=== PATIENT | female | born 1985 ===

== ENCOUNTER 2023-03-28 09:51 | Outpatient (AMB) | payer OTHER, SELFPAY ==
--- NOTE | 2023-03-28 09:52 | A.OFFPC_ITS ---
Vital Signs 03/28/23 09:56 Height 5 ft 10 in Weight 152 lb 8 oz BMI 21.9 BP 112/70 Blood Pressure Location Rt brachial Position Sitting Pulse 97 Pulse Source Pulse Oximeter Pulse Oximetry (%) 98 Oxygen Delivery Method Room Air Intake Visit Reasons: annual pe Allergies Sulfa (Sulfonamide Antibiotics) Allergy (Unknown, Verified 03/28/23 09:57) nausea Medication List - Last Reconciled 03/28/23 by Irving Han MD albuterol (refill) 90 mcg/actuation mcg inhalation albuterol sulfate 90 mcg/actuation (ProAir HFA) 1 inh inhalation QID PRN 30 days fexofenadine (Wal-Fex Allergy) 180 mg PO DAILY fluticasone propionate (Flonase) intranasal DAILY Tobacco use date assessed: 03/28/23 Dental Screening Dental Screen Date: 03/28/23 Did you have a dental visit in the last 12 months?: No Did you have a dental problem in the last 6 months where you did not have access to dental care?: No Was dental information given to patient?: No HPI annual pe HPI Details Patient is a 37-year-old female came in today for physical examination Having difficulty falling and then staying asleep patient says that pihm-yyk-qyjvvby sleep remedies does work but she does not want to take them too much. We talked about taking Benadryl vagg-abw-axnvazd she does have allergies as well it will help her with sleep as well as allergies. Lab order placed to be done fasting She continued to complain of feeling tired Patient is doing 2 jobs Also complaining of heavy periods that she will discuss further with her OBGYN Complaining of constipation off and on we talked about high fiber diet it is okay to take gdyt-[id number]-[id number] senna tablet as needed as well. Push more fluids. PFSH Family History Brother Substance use disorder Mental health disorder Maternal Aunt Substance use disorder Mental health disorder Mother Substance use disorder Mental health disorder Father Substance use disorder Social History Housing: Apartment Alcohol intake: current Alcohol intake frequency: holidays/special occasions only Patient Tobacco Use Status: Never used Tobacco e-Cigarette/Vaping Use: Never Used Current occupational status: employed Cognitive needs: No Hearing needs: No Vision needs: No Questionnaire Thrive Questionnaire Date Thrive assessed: 12/18/21 AUDIT C Alcohol Use Questionnaire (AUDIT-C) 1. How often do you have a drink containing alcohol?: Never 3. How often do you have six or more drinks on one occasion?: Never Total Score: 0 Score Reviewed/Action Taken: Yes ALEXANDER-7 AMB Questionnaire ALEXANDER-7 Date ALEXANDER - 7 assessed: 12/18/21 Source: Developed by Drs. Eliot Alford, Zunilda Jennings, Vaughn Call and colleagues, with an educational sourav from [employer] Review of Systems Const Denies chills, Denies fever(s) and Denies headache(s) Eyes Denies blurry vision ENT Denies headache(s), Denies nasal discharge, Denies nasal obstruction, Denies odynophagia and Denies sinus pain Card Denies chest pain at rest and Denies chest pain with activity Resp Denies cough and Denies hemoptysis GI Denies diarrhea, Denies odynophagia, Denies vomiting and Denies hematemesis Reports as per HPI Musc Denies abnormal gait Skin/Breast Reports as per HPI Neuro Denies Neuro-related abnormal movements, Denies Abnormal speech present, Denies abnormal gait, Denies headache(s) and Denies Sensory deficit (Neuro) Psych Denies mood swings and Denies paranoia Endo Reports as per HPI Shay/Lymph Reports as per HPI Aller/Immun Reports as per HPI Physical exam (Primary Care) Vital Signs: Last Vital Signs Pulse 97 03/28/23 09:56 BP 112/70 03/28/23 09:56 Pulse Ox 98 03/28/23 09:56 Oxygen Delivery Method Room Air 03/28/23 09:56 BMI result Body Mass Index 21.9 Tobacco/Smoking Status: Tobacco use Status Tobacco use date assessed 03/28/23 03/28/23 09:57 Patient Tobacco Use Status Never used Tobacco 03/28/23 09:57 e-Cigarette/Vaping Use Never Used 03/28/23 09:53 Thrive Assessment: Date of Thrive Assessment Date Thrive assessed 12/18/21 03/28/23 09:53 Const General: cooperative, comfortable and no acute distress Orientation/consciousness: patient oriented x3 HENMT Head: Yes normocephalic and Yes atraumatic Eyes General: appearance normal, both eyes and all related structures Pupils: Equal, round and reactive pupils present EOM: EOMs intact bilaterally Neck Neck: Yes supple and No lymphadenopathy Thyroid: Thyroid normal Lymphatic: no lymphadenopathy noted Resp Effort & Inspection: normal respiratory effort and able to speak in complete sentences Auscultation: clear to auscultation bilaterally Cardio Heart sounds: S1 normal heart sound present and S2 normal heart sound present GI Palpation (GI): Soft to palpation and nontender Auscultation: normal bowel sounds General: Yes no CVA tenderness Back/Spine/Pelvis Back: no CVA tenderness Skin General skin exam: elasticity normal and turgor normal Neuro General: patient oriented x3 and gait normal Cranial nerves: Yes Equal, round and reactive pupils present Speech: No Abnormal speech present Sensory Exam: No Sensory deficit (Neuro) Coordination: tandem gait normal and Romberg test negative Extrem General: Yes normal exam except as noted and No edema Assessment and Plan Assessment & Plan (1) Encounter for general adult medical examination with abnormal findings: Code(s): Z00.01 - Encounter for general adult medical examination with abnormal findings (2) Environmental allergies: Code(s): Z91.09 - Other allergy status, other than to drugs and biological substances (3) Mild asthma: Code(s): J45.909 - Unspecified asthma, uncomplicated (4) Tired: Code(s): R53.83 - Other fatigue (5) Trouble getting to sleep: Code(s): G47.09 - Other insomnia Plan Patient is a 37-year-old female came in today for physical examination Having difficulty falling and then staying asleep patient says that foyr-fip-vikuiqd sleep remedies does work but she does not want to take them too much. We talked about taking Benadryl dwxx-gat-qocxciw she does have allergies as well it will help her with sleep as well as allergies. Lab order placed to be done fasting She continued to complain of feeling tired Patient is doing 2 jobs Also complaining of heavy periods that she will discuss further with her OBGYN Complaining of constipation off and on we talked about high fiber diet it is okay to take ccsj-bdz-tephcnn senna tablet as needed as well. Push more fluids. Patient does have mild asthma which could be secondary to allergy or exercise- induced I have sent a refill on ProAir inhaler to be taken as needed Orders: Orders Comprehensive [place]. Panel Fast Today J45.909 - Unspecified asthma, uncomplicated, Z00.01 - Encounter for general adult medical examination with abnormal findings, Z91.09 - Other allergy status, other than to drugs and biological substances Lipid Panel Today J45.909 - Unspecified asthma, uncomplicated, Z00.01 - Encounter for general adult medical examination with abnormal findings, Z91.09 - Other allergy status, other than to drugs and biological substances Complete Blood Count Auto Diff Today J45.909 - Unspecified asthma, uncomplicated, Z00.01 - Encounter for general adult medical examination with abnormal findings, Z91.09 - Other allergy status, other than to drugs and biological substances TSH reflex Free T4 Today G47.09 - Other insomnia, J45.909 - Unspecified asthma, uncomplicated, R53.83 - Other fatigue, Z00.01 - Encounter for general adult medical examination with abnormal findings, Z91.09 - Other allergy status, other than to drugs and biological substances Vitamin D 25-OH (D2 and D3) Today G47.09 - Other insomnia, J45.909 - Unspecified asthma, uncomplicated, R53.83 - Other fatigue, Z00.01 - Encounter for general ad ult medical examination with abnormal findings, Z91.09 - Other allergy status, other than to drugs and biological substances Medications: Refilled albuterol sulfate 90 mcg/actuation (ProAir HFA) 1 inh inhalation QID PRN 18 grams 5RF shortness of breath or wheezing 30 days Coding Level of Care Code Est Pt Prev Care 18-39y(47870) Diagnoses Encounter for general adult medical examination with abnormal findings Z00.01 Environmental allergies Z91.09 Mild asthma J45.909 Tired R53.83 Trouble getting to sleep G47.09
[2023-03-28 09:56] VITALS: BP 112/70; PULSE 97; O2SAT 98; BMI 21.9
== END 2023-03-28 10:50 | disposition home or self-care (01) ==
PROVIDERS: PCP Internal Medicine; Visit Provider Internal Medicine
DX: Z00.01 Encounter for general adult medical examination with abnormal findings (principal); Z91.09 Other allergy status, other than to drugs and biological substances; J45.909 Unspecified asthma, uncomplicated; R53.83 Other fatigue; G47.09 Other insomnia
CPT/HCPCS: 99395

== ENCOUNTER 2023-03-31 06:47 | Outpatient (REF) | payer OTHER, SELFPAY ==
[2023-03-31 11:59] LABS: MANUAL DIFF FLAG NO
[2023-03-31 12:10] LABS: Basophils Percent Auto 0.6 % (0-2); Eosinophils Absolute Auto 0.6 X10*3/uL (0.0-0.4); Eosinophils Percent Auto 8.5 % (0-4); Hematocrit 41.7 % (37.0-47.0); Hemoglobin 13.6 g/dl (12.0-16.0); Imm Gran Abs Auto 0.02 X10*3/uL (0.00-0.03); Imm Gran Pct Auto 0.3 % (0.0-0.4); Lymphocytes Absolute Auto 2.7 X10*3/uL (1.2-4.9); Lymphocytes Percent Auto 41.2 % (20-40); Mean Corpuscular HGB Conc 32.6 g/dl (31.0-35.0); Mean Corpuscular Hemoglobin 30.6 pg (27.0-33.0); Mean Corpuscular Volume 93.9 fL (80.0-98.0); Mean Platelet Volume 10.3 fL (9.4-12.3); Monocytes Absolute Auto 0.7 X10*3/uL (0.1-1.2); Monocytes Percent Auto 10.1 % (2-11); Neutrophils Absolute Auto 2.5 x10*3/uL (2.0-8.3); Neutrophils Percent Auto 39.3 % (45-73); Platelet Count 278 X10*3/uL (160-400); Red Blood Count 4.44 X10*6/uL (4.20-5.50); Red Cell Distribution Width 11.9 % (11.0-16.0); White Blood Count 6.5 X10*3/uL (4.8-10.8)
[2023-03-31 12:55] LABS: Alanine Aminotransferase 12 U/L (0-31); Albumin Level 4.1 g/dL (3.5-5.0); Alkaline Phosphatase 67 U/L (39-117); Anion Gap 11 (12-20); Aspartate Amino Transferase 17 U/L (5-31); Bilirubin Total 0.7 mg/dL (0.0-1.0); Blood Urea Nitrogen 8 mg/dL (9-16); Calcium 9.5 mg/dL (8.4-10.2); Carbon Dioxide 27 mmol/L (22-29); Chloride 105 mmol/L (96-108); Cholesterol 130 mg/dL; Estimated Glomerular Filt Rate > 60; Glucose Fasting 83 mg/dL (60-99); HDL Cholesterol 50 mg/dL; LDL Cholesterol Calculated 63 mg/dl; Sodium 139 mmol/L (135-145); Total Protein 7.1 g/dL (6.5-8.0); Triglycerides 89 mg/dL
[2023-03-31 12:56] LABS: TSH reflex Free T4 0.88 uIU/mL (0.32-4.0)
[2023-04-04 14:54] LABS: Vitamin D 25-OH, D2 <4 ng/mL; Vitamin D 25-OH, D3 29 ng/mL; Vitamin D 25-OH, Total 29 ng/mL (30-100)
== END 2023-03-31 06:48 | disposition home or self-care (01) ==
LOC: HO.HMGCLDS 06:47
PROVIDERS: PCP Internal Medicine; Visit Provider Internal Medicine
DX: Z00.01 Encounter for general adult medical examination with abnormal findings (principal); J45.909 Unspecified asthma, uncomplicated; G47.09 Other insomnia; R53.83 Other fatigue; Z91.09 Other allergy status, other than to drugs and biological substances
CPT/HCPCS: 36415; 80053; 80061; 82306; 84443; 85025

== ENCOUNTER 2023-07-28 10:23 | Outpatient (AMB) | payer OTHER, SELFPAY ==
--- NOTE | 2023-07-28 11:12 | MHC.OFFWIV ---
Intake Vital Signs 07/28/23 11:13 Height 5 ft 10 in Weight 70.307 kg BMI 22.2 BP 110/68 Blood Pressure Location Rt brachial Position Sitting Pulse 80 Pulse Source Pulse Oximeter Temp 97.8 F Temp Source Temporal Artery Scan Pulse Oximetry (%) 97 Oxygen Delivery Method Room Air Intake Visit Reasons: EP, Swallowed a piece of plastic fork Intake Note: pt is here for c/o sore throat due to swallowing pastic fork Patient Tobacco Use Status: Never used Tobacco Allergies Sulfa (Sulfonamide Antibiotics) Allergy (Unknown, Verified 07/28/23 11:14) nausea Do you need a note to return to daycare/school/sports/work: Yes HPI HPI Comments History of Present Illness Details 37-year-old female presents foreign body sensation in throat since last night, patient reports she was eating, 1 of the pointy parts of the plastic fork broke off and she swallowed it she thinks it scratched her throat and since then has been having a discomfort in her throat. Patient has been able to eat and drink since then, we gave her a cup of water in the room and she was able to drink it without difficulty. No chest pain or shortness of breath. Tolerating secretions well, no changes in voice, fevers, chills, difficulty breathing, nausea, vomiting, abdominal pain. This was not intentional Physical exam benign This is likely an abrasion to that throat status post swallowing a pointy object. Unlikely perforation, threat to airway, pneumothorax. Patient able to tolerate p.o. no need for emergent endoscopy or visit to the emergency department. Will obtain imaging and advised her to speak to PCP about GI referral if needed. Educated patient on diagnosis and treatment plan, answered all question, patient verbalizes understanding. At this time patient will be discharged home, advised to return with new or worsening symptoms. Educated on worrisome signs and symptoms and when to return. At this time I feel comfortable discharge home. PFSH Family History Brother Substance use disorder Mental health disorder Maternal Aunt Substance use disorder Mental health disorder Mother Substance use disorder Mental health disorder Father Substance use disorder Social History Housing: Apartment Alcohol intake: current Alcohol intake frequency: holidays/special occasions only Patient Tobacco Use Status: Never used Tobacco e-Cigarette/Vaping Use: Never Used Current occupational status: employed Cognitive needs: No Hearing needs: No Vision needs: No Review of Systems Const Details: Constitutional : No Weight loss, No Fever, No Chills, No Fatigue, No Malaise ENT/Mouth : No sore throat, No Rhinorrhea, + FB sensation in throat Eyes: No Eye Pain, No Swelling, No Redness Cardiovascular : No Chest Pain, No SOB, No Dyspnea on Exertion, No Orthopnea, No Edema, No Palpitations Respiratory : No Cough, No Sputum, No Wheezing Gastrointestinal : No Nausea, No Vomiting, No Diarrhea, No Constipation, No abdominal Pain, No Hematochezia, No Melena Genitourinary : No Dysuria, No Urinary Frequency, No Hematuria, Musculoskeletal : No joint pain, No Myalgias, No Joint Swelling Skin : No Skin Lesions, No rash Neuro : No Weakness, No Numbness, No Dizziness, No Headache Psych : No Anxiety/Panic, No Depression All other systems reviewed and are negative All systems reviewed & are unremarkable except as noted in HPI and below Physical Exam Vital Signs: Last Vital Signs Temp 97.8 F 07/28/23 11:13 Pulse 80 07/28/23 11:13 BP 110/68 07/28/23 11:13 Pulse Ox 97 07/28/23 11:13 Oxygen Delivery Method Room Air 07/28/23 11:13 BMI result Body Mass Index 22.2 Vital signs stable Appearance: Alert.? Oriented X3.? No acute distress.? Speaking full sentences controlling secretions well. Head: Normocephalic, atraumatic, no step-offs or deformities Eyes: Pupils equal, round and reactive to light.? ENT: Pharynx normal.? Neck: Normal inspection.? Neck supple.? CVS: Normal heart rate and rhythm.? Pulses normal.? Respiratory: No respiratory distress.? Breath sounds normal.? Abdomen: Soft and nontender.? Skin: Skin warm and dry.? Normal skin color.? Normal skin turgor.? Extremities: No lower extremity edema.? No calf ttp. 5/5 strength to bilateral upper and lower extremities Neuro: Oriented X 3.? No motor deficit.? No sensory deficit. CN 2-12 intact Assessment & Plan Assessment & Plan (1) Foreign body sensation in throat: Code(s): R09.A2 - Foreign body sensation, throat Plan Take your medications as prescribed. If you were prescribed antibiotics today, it is important that you take your medication to their entirety, do not skip any doses, do not finish them early. Follow-up with your primary care provider this week. Return to the emergency department with new or worsening symptoms. Such as fevers, chills, chest pain, shortness of breath, nausea, vomiting, dizziness, headache, vision changes, lethargy In case of emergency call 911 Follow-up with GI as needed Orders: Orders XR KUB Today R09.A2 - Foreign body sensation, throat XR soft tissue neck Today R09.A2 - Foreign body sensation, throat Coding Level of Care Code Est Pt Level 3 (90470) Diagnoses Foreign body sensation in throat R09.A2
[2023-07-28 11:13] VITALS: BP 110/68; PULSE 80; TEMP 36.6; O2SAT 97; BMI 22.2
== END 2023-07-28 11:48 | disposition home or self-care (01) ==
PROVIDERS: PCP Internal Medicine; Visit Provider Physician Assistant
DX: R09.A2 Foreign body sensation, throat (principal)
CPT/HCPCS: 99213

== ENCOUNTER 2023-07-28 11:17 | Outpatient (REF) | payer OTHER, SELFPAY ==
--- NOTE | ~2023-07-28 | XR_ITS ---
EXAMINATION: XR SOFT TISSUE NECK CLINICAL INDICATION: Foreign body sensation. COMPARISON: None available. TECHNIQUE: 2 views of the soft tissue neck were obtained. FINDINGS: Soft tissue films of the neck demonstrate a normal larynx, pharynx and upper trachea. No significant soft tissue swelling or radiopaque foreign body is demonstrated. XR/XR soft tissue neck IMPRESSION: Unremarkable examination.
--- NOTE | ~2023-07-28 | XR_ITS ---
EXAMINATION: XR ABDOMEN KUB CLINICAL INDICATION: Foreign body sensation. COMPARISON: None available. TECHNIQUE: 2 views of the abdomen. FINDINGS: Imaged lung bases are clear. The bowel gas pattern is nonobstructive. No unusual soft tissue calcifications are noted. Regional osseous structures are intact. XR/XR KUB IMPRESSION: Unremarkable examination.
== END 2023-07-28 11:18 | disposition home or self-care (01) ==
LOC: HO.HMGCX 11:17
PROVIDERS: PCP Internal Medicine; Visit Provider Physician Assistant
DX: R09.A2 Foreign body sensation, throat (principal)
CPT/HCPCS: 70360; 74018

== ENCOUNTER 2023-09-19 09:50 | Outpatient (AMB) | payer OTHER, SELFPAY ==
[2023-09-19 09:55] VITALS: BP 112/78; PULSE 90; TEMP 36.9; O2SAT 98; BMI 21.4
--- NOTE | 2023-09-19 09:55 | AM.OFFWIN_ITS ---
Intake Vital Signs 09/19/23 09:55 Height 5 ft 10 in Weight 149 lb BMI 21.4 BP 112/78 Blood Pressure Location Lt brachial Position Sitting Pulse 90 Pulse Source Pulse Oximeter Temp 98.5 F Temp Source Temporal Artery Scan Pulse Oximetry (%) 98 Oxygen Delivery Method Room Air Intake Visit Reasons: EST/sore throat/ ear pain(lobby) Intake Note: pt is here today for sore throat and ear pain started Friday Patient Tobacco Use Status: Never used Tobacco Allergies Sulfa (Sulfonamide Antibiotics) Allergy (Unknown, Verified 09/19/23 09:56) nausea Medication List - Last Reconciled 09/19/23 by Mayda Young NP albuterol sulfate 90 mcg/actuation (ProAir HFA) 1 inh inhalation QID PRN 30 days fexofenadine (Wal-Fex Allergy) 180 mg PO DAILY fluticasone propionate (Flonase) intranasal DAILY Do you need a note to return to daycare/school/sports/work: Yes HPI HPI Comments History of Present Illness Details 37 y/o female patient presents [facility] with c/o sore-throat and ear pain since Friday. Denies fevers, chills, nausea or vomiting. PFSH Family History Brother Substance use disorder Mental health disorder Maternal Aunt Substance use disorder Mental health disorder Mother Substance use disorder Mental health disorder Father Substance use disorder Social History Housing: Apartment Alcohol intake: current Alcohol intake frequency: holidays/special occasions only Patient Tobacco Use Status: Never used Tobacco e-Cigarette/Vaping Use: Never Used Current occupational status: employed Cognitive needs: No Hearing needs: No Vision needs: No Review of Systems Const All systems reviewed & are unremarkable except as noted in HPI and below Physical Exam Vital Signs: Last Vital Signs Temp 98.5 F 09/19/23 09:55 Pulse 90 09/19/23 09:55 BP 112/78 09/19/23 09:55 Pulse Ox 98 09/19/23 09:55 Oxygen Delivery Method Room Air 09/19/23 09:55 BMI result Body Mass Index 21.4 Const General: comfortable and no acute distress HEENT Head: Yes normocephalic Ears: external ears normal and TM's normal bilaterally General nose exam: Abnormal mucous membranes and turbinates present boggy and erythematous and Nasal discharge present Face and sinus: Yes sinuses nontender Mouth: moist mucous membranes and Abnormal oral and palatal mucosa present erythematous Throat: Yes postnasal drainage Resp Effort & Inspection: normal respiratory effort Auscultation: clear to auscultation bilaterally Cardio Rate: regular rate Rhythm: regular rhythm Results AMB Rapid Strep AMB Rapid Strep Negative Last Edit by Marcelino Ovalle CMA on 09/19/23 10 :59 Results Reviewed Results Reviewed: Laboratory Last Values Strep Scn [facility] Negative 09/19/23 10:58 Assessment & Plan Assessment & Plan (1) Acute pharyngitis: Code(s): J02.9 - Acute pharyngitis, unspecified Qualifiers: Pharyngitis/tonsillitis etiology: other specified organisms Qualified Code(s): J02.8 - Acute pharyngitis due to other specified organisms Plan: - Rest, warm fluids - Throat culture for Strep - SARs. - OTC cold remedies Orders: Orders AMB Rapid Strep Screen Today Z13.9 - Encounter for screening, unspecified SARS-CoV2/FLU/RSV Today J02.8 - Acute pharyngitis due to other specified organisms Throat Culture Today J02.8 - Acute pharyngitis due to other specified organisms Medications: New amoxicillin 500 mg PO BID 5 days 10 caps 0RF J02.8 - Acute pharyngitis due to other specified organisms Coding Level of Care Code Est Pt Level 3 (13939) Diagnoses Acute pharyngitis due to other specified organisms J02.8 Pharyngitis/tonsillitis etiology: other specified organisms Time Spent (min) 15
== END 2023-09-19 10:31 | disposition home or self-care (01) ==
PROVIDERS: PCP Internal Medicine; Visit Provider Nurse Practitioner Family
DX: J02.9 Acute pharyngitis, unspecified (principal)
CPT/HCPCS: 87880; 99213

== ENCOUNTER 2023-09-19 15:19 | Outpatient (REF) | payer OTHER, SELFPAY ==
[2023-09-19 16:28] LABS: Influenza A PCR NEGATIVE (Negative); Influenza B PCR NEGATIVE (Negative); Resp Syncy Virus RNA Qual PCR NEGATIVE (Negative); SARS COV2 PCR INHOUSE NEGATIVE (Negative)
== END 2023-09-19 15:20 | disposition home or self-care (01) ==
LOC: HO.LNP 15:19
PROVIDERS: Visit Provider Nurse Practitioner Family
DX: Z11.52 Encounter for screening for COVID-19 (principal); Z20.822 Contact with and (suspected) exposure to COVID-19; J02.8 Acute pharyngitis due to other specified organisms
CPT/HCPCS: 0241U; 87070

== ENCOUNTER 2023-10-23 08:00 | Outpatient (AMB) | payer OTHER, SELFPAY ==
[2023-10-23 08:15] VITALS: BP 118/72; PULSE 74; TEMP 36.6; O2SAT 98; BMI 21.5
--- NOTE | 2023-10-23 08:15 | AM.OFFWIN_ITS ---
Intake Vital Signs 10/23/23 08:15 Height 5 ft 10 in Weight 150 lb BMI 21.5 BP 118/72 Blood Pressure Location Lt brachial Position Sitting Pulse 74 Pulse Source Pulse Oximeter Temp 97.9 F Temp Source Oral Pulse Oximetry (%) 98 Oxygen Delivery Method Room Air Intake Visit Reasons: EST/trouble swallowing (lobby masked) Intake Note: pt is here for difficulty swallowing Patient Tobacco Use Status: Never used Tobacco Allergies Sulfa (Sulfonamide Antibiotics) Allergy (Unknown, Verified 10/23/23 08:16) nausea Do you need a note to return to daycare/school/sports/work: Yes HPI HPI Comments History of Present Illness Details 38 y/o female patient who [facility] clinic with c/o difficulty swallowing. Pt reports pain and discomfort every time she drinks fluids or comnusme solids. Pt reports feeling like something is stuck inside her throat preventing her from swallowing. Denies SOB or chest pains. Denies any other symptoms. Pt was seen back 2/4 by vt - Throat culture, SARs were all negative. She has not had mouth cleaning for many years. [facility] Family History Brother Substance use disorder Mental health disorder Maternal Aunt Substance use disorder Mental health disorder Mother Substance use disorder Mental health disorder Father Substance use disorder Social History Housing: Apartment Alcohol intake: current Alcohol intake frequency: holidays/special occasions only Patient Tobacco Use Status: Never used Tobacco e-Cigarette/Vaping Use: Never Used Current occupational status: employed Cognitive needs: No Hearing needs: No Vision needs: No Review of Systems Const All systems reviewed & are unremarkable except as noted in HPI and below Physical Exam Vital Signs: Last Vital Signs Temp 97.9 F 10/23/23 08:15 Pulse 74 10/23/23 08:15 BP 118/72 10/23/23 08:15 Pulse Ox 98 10/23/23 08:15 Oxygen Delivery Method Room Air 10/23/23 08:15 BMI result Body Mass Index 21.5 HEENT Mouth: tongue normal, Normal salivary glands and ducts present, oropharynx normal and moist mucous membranes Neck Neck: Yes full ROM, Yes no lymphadenopathy, Yes trachea midline and Yes supple Thyroid: Thyroid normal, not firm, no masses, no nodules and nontender Assessment & Plan Assessment & Plan (1) Trouble swallowing: Code(s): R13.10 - Dysphagia, unspecified Qualifiers: Dysphagia type: unspecified Qualified Code(s): R13.10 - Dysphagia, unspecified Plan: DDx's: Tonsil stones vs GERD vs Neck/thyroid nodules/mass - TSH levels to r/o thyroid disease - F/U with PCP for Neck U/S if symptoms not better - F/U Dentist for Routine Teeth cleaning - Improve Oral Hygiene Orders: Orders TSH reflex Free T4 Today R13.10 - Dysphagia, unspecified Coding Level of Care Code Est Pt Level 3 (43469) Diagnoses Dysphagia, unspecified type R13.10 Dysphagia type: unspecified Time Spent (min) 15
== END 2023-10-23 08:56 | disposition home or self-care (01) ==
PROVIDERS: PCP Internal Medicine; Visit Provider Nurse Practitioner Family
DX: R13.10 Dysphagia, unspecified (principal)
CPT/HCPCS: 99213

== ENCOUNTER 2023-10-23 08:38 | Outpatient (REF) | payer OTHER, SELFPAY ==
[2023-10-23 12:32] LABS: TSH reflex Free T4 0.83 uIU/mL (0.32-4.0)
== END 2023-10-23 08:39 | disposition home or self-care (01) ==
LOC: HO.HMGCLDS 08:38
PROVIDERS: PCP Internal Medicine; Visit Provider Nurse Practitioner Family
DX: R13.10 Dysphagia, unspecified (principal)
CPT/HCPCS: 36415; 84443

== ENCOUNTER 2023-11-26 08:34 | Outpatient (AMB) | payer OTHER, SELFPAY ==
[2023-11-26 08:41] VITALS: BP 120/68; PULSE 96; O2SAT 99; BMI 22.0
--- NOTE | 2023-11-26 08:41 | A.OFFPC_ITS ---
Vital Signs 11/26/23 08:41 Height 5 ft 10 in Weight 153 lb 8 oz BMI 22.0 BP 120/68 Blood Pressure Location Lt brachial Position Sitting Pulse 96 Pulse Source Pulse Oximeter Pulse Oximetry (%) 99 Oxygen Delivery Method Room Air Intake Visit Reasons: ENT Referral-Difficulties Swallowing Allergies Sulfa (Sulfonamide Antibiotics) Allergy (Unknown, Verified 11/26/23 08:44) nausea Medication List - Last Reconciled 11/26/23 by Irving Han MD albuterol sulfate 90 mcg/actuation (ProAir HFA) 1 inh inhalation QID PRN 30 days Tobacco use date assessed: 11/26/23 Dental Screening Dental Screen Date: 11/26/23 Did you have a dental visit in the last 12 months?: No Did you have a dental problem in the last 6 months where you did not have access to dental care?: No Was dental information given to patient?: Patient has dentist HPI ENT Referral-Difficulties Swallowing HPI Details Patient is a 38-year-old female Patient says that in July she accidentally swallowed a bronch of plastic fork Then in August she had viral illness Since then she is having difficulty with speaking and hoarseness of voice off and on Patient is a Griffith and is unable to seeing since. She would like to have a referral to ENT specialist as well as speech therapist She also like to have a referral to OBGYN since she has not seen 1 in a while On examination today her ENT exam is within normal limit She also is complaining of irritant cough off and on I would recommend that while she is waiting for ENT evaluation She should start [id number] Prilosec to see if it helps her with irritant cough and the sore throat she is experiencing off and on. Also would like to recommend to stop eating 4 hours before bedtime and avoid acidic foods. She does have mild asthma that she has not treating. She should start using the rescue inhaler and see if her symptoms improve PFSH Family History Brother Substance use disorder Mental health disorder Maternal Aunt Substance use disorder Mental health disorder Mother Substance use disorder Mental health disorder Father Substance use disorder Social History Housing: Apartment Alcohol intake: current Alcohol intake frequency: holidays/special occasions only Patient Tobacco Use Status: Never used Tobacco e-Cigarette/Vaping Use: Never Used Current occupational status: employed Cognitive needs: No Hearing needs: No Vision needs: No Questionnaire PHQ-9 Over the last 2 weeks, how often have you been bothered by any of the following problems? 1. Little interest or pleasure in doing things: not at all 2. Feeling down, depressed, or hopeless: not at all 3. Trouble falling or staying asleep, or sleeping too much: not at all 4. Feeling tired or having little energy: not at all 5. Poor appetite or overeating: not at all 6. Feeling bad about yourself - or that you are a failure or have let yourself or your family down: not at all 7. Trouble concentrating on things, such as reading the newspaper or watching television: not at all 8. Moving or speaking so slowly that other people could have noticed. Or the opposite - being so fidgety or restless that you have been moving around a lot more than usual: not at all 9. Thoughts that you would be better off or of hurting yourself in some way: not at all Total score: 0 Depression Screening Interpretation: Negative Depression Screening Done: Yes 89250 - PHQ-9 Billing: Yes Source: Developed by Drs. Eliot Alford, Zunilda Jennings, Vaughn Call and colleagues, with an educational sourav from [employer]. Thrive Questionnaire Date Thrive assessed: 11/26/23 I am a: Patient What is your living situation today?: I have a steady place to live Within the past 12 months, did the food you bought not last and you didn't have the money to get more?: Never true Within the past 12 months, did you worry whether your food would run out before you got money to buy more?: Never true Do you have trouble paying for medicines?: No Do you have trouble getting transportation to medical appointments?: No Do you have trouble paying your heating and electricity bill?: No Do you have trouble taking care of your child, family member or friend?: No Do you have trouble with day-to-day activities such as bathing, preparing meals, shopping, managing finances, etc.?: No Are you currently unemployed and looking for a job?: No Are you interested in more education?: No Please select the resources that you would like help with: None Currently or been in a relationship where the following occur: no concerns reported THRIVE Score: 0 AUDIT C Alcohol Use Questionnaire (AUDIT-C) 1. How often do you have a drink containing alcohol?: Never 3. How often do you have six or more drinks on one occasion?: Never Total Score: 0 Score Reviewed/Action Taken: Yes ALEXANDER-7 AMB Questionnaire ALEXANDER-7 Date ALEXANDER - 7 assessed: 11/26/23 Feeling nervous, anxious, or on edge: 0 = Not at all Not being able to stop or control worryin = Not at all Worrying too much about different things: 0 = Not at all Trouble relaxin = Not at all Being so restless that it is hard to sit still: 0 = Not at all Becoming easily annoyed or irritable: 0 = Not at all Feeling afraid as if something awful might happen: 0 = Not at all Total ALEXANDER-7 score (0-4 normal; 5-9 mild; 10-14 moderate; 15-21 severe): 0 Source: Developed by Drs. Eliot Alford, Zunilda Jennings, Vaughn Call and colleagues, with an educational sourav from [employer]. ALEXANDER-7 Assessment Billing ALEXANDER-7 Assessment Tool: ALEXANDER-7 Assessment 34200 Review of Systems Const Denies chills and Denies fever(s) ENT Denies epistaxis and Denies nasal discharge Card Denies chest pain Resp Denies chest congestion and Denies hemoptysis GI Denies diarrhea and Denies nausea Skin/Breast Denies rash Neuro Reports no additional complaints Psych Reports no additional complaints Endo Reports no additional complaints Physical exam (Primary Care) Vital Signs: Last Vital Signs Pulse 96 11/26/23 08:41 BP 120/68 11/26/23 08:41 Pulse Ox 99 11/26/23 08:41 Oxygen Delivery Method Room Air 11/26/23 08:41 BMI result Body Mass Index 22.0 Tobacco/Smoking Status: Tobacco use Status Tobacco use date assessed 11/26/23 11/26/23 08:49 Patient Tobacco Use Status Never used Tobacco 11/26/23 08:49 e-Cigarette/Vaping Use Never Used 11/26/23 08:49 PHQ-9: PHQ-9 Score PHQ-9: Total score 0 11/26/23 09:15 Depression Screening Interpretation: Negative Thrive Assessment: Date of Thrive Assessment Date Thrive assessed 11/26/23 11/26/23 09:15 Currently or been in a relationship where the following occur: no concerns reported Const General: cooperative, comfortable and no acute distress Orientation/consciousness: patient oriented x3 HENMT Other: ENT exam is within normal limit Head: Yes normocephalic Eyes General: appearance normal, both eyes and all related structures Neck Neck: Yes supple Resp Effort & Inspection: normal respiratory effort, no cough and no stridor Cardio Rhythm: regular rhythm Heart sounds: S1 normal heart sound present and S2 normal heart sound present Skin General skin exam: turgor normal Neuro General: patient oriented x3, tone normal and moves all extremities Extrem Right lower extremity: no edema Left lower extremity: no edema Assessment and Plan Assessment & Plan (1) Hoarseness of voice: Code(s): R49.0 - Dysphonia (2) Difficulty speaking: Code(s): R47.9 - Unspecified speech disturbances (3) Dry cough: Code(s): R05.8 - Other specified cough (4) Asthma, intermittent: Code(s): J45.20 - Mild intermittent asthma, uncomplicated Qualifiers: Asthma severity: mild Asthma complication type: uncomplicated Qualified Code(s): J45.20 - Mild intermittent asthma, uncomplicated Plan Patient is a 38-year-old female Patient says that in July she accidentally swallowed a bronch of plastic fork Then in August she had viral illness Since then she is having difficulty with speaking and hoarseness of voice off and on Patient is a [place] and is unable to seeing since. She would like to have a referral to ENT specialist as well as speech therapist She also like to have a referral to OBGYN since she has not seen 1 in a while On examination today her ENT exam is within normal limit She also is complaining of irritant cough off and on I would recommend that while she is waiting for ENT evaluation She should start [id number] Prilosec to see if it helps her with irritant cough and the sore throat she is experiencing off and on. Also would like to recommend to stop eating 4 hours before bedtime and avoid acidic foods. She does have mild asthma that she has not treating. 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
== END 2023-11-26 10:33 | disposition home or self-care (01) ==
PROVIDERS: PCP Internal Medicine; Visit Provider Internal Medicine
DX: R49.0 Dysphonia (principal); R47.9 Unspecified speech disturbances; R05.8 Other specified cough; J45.20 Mild intermittent asthma, uncomplicated
CPT/HCPCS: 99214

== ENCOUNTER 2023-12-16 22:16 | Emergency (ER) | payer OTHER, SELFPAY ==
[2023-12-16 22:52] VITALS: BP 121/62; PULSE 90; RESP 4; TEMP 36.6; O2SAT 98; BMI 22.2
--- NOTE | 2023-12-16 23:01 | ECG_ITS ---
Test Reason : OVERDOSE Blood Pressure : / mmHG Vent. Rate : 078 BPM Atrial Rate : 078 BPM P-R Int : 154 ms QRS Dur : 080 ms QT Int : 360 ms P-R-T Axes : 073 061 032 degrees QTc Int : 410 ms Normal sinus rhythm with sinus arrhythmia Normal ECG No previous ECGs available Referred By: Generic ED Physician Electronically Signed By:SUZANNE VILLAVICENCIO
[2023-12-16 23:47] LABS: Basophils Percent Auto 0.4 % (0-2); Eosinophils Absolute Auto 0.1 X10*3/uL (0.0-0.4); Hematocrit 39.2 % (37.0-47.0); Hemoglobin 13.3 g/dl (12.0-16.0); Imm Gran Abs Auto 0.02 X10*3/uL (0.00-0.03); Imm Gran Pct Auto 0.3 % (0.0-0.4); Lymphocytes Absolute Auto 2.1 X10*3/uL (1.2-4.9); Lymphocytes Percent Auto 30.5 % (20-40); MANUAL DIFF FLAG NO; Mean Corpuscular HGB Conc 33.9 g/dl (31.0-35.0); Mean Corpuscular Hemoglobin 31.1 pg (27.0-33.0); Mean Corpuscular Volume 91.6 fL (80.0-98.0); Monocytes Absolute Auto 0.6 X10*3/uL (0.1-1.2); Monocytes Percent Auto 9.3 % (2-11); Neutrophils Absolute Auto 3.9 x10*3/uL (2.0-8.3); Neutrophils Percent Auto 58.5 % (45-73); Platelet Count 266 X10*3/uL (160-400); Red Blood Count 4.28 X10*6/uL (4.20-5.50); Red Cell Distribution Width 12.4 % (11.0-16.0); White Blood Count 6.8 X10*3/uL (4.8-10.8)
[2023-12-17 00:02] LABS: Alanine Aminotransferase 16 U/L (0-31); Albumin Level 4.2 g/dL (3.5-5.0); Alkaline Phosphatase 60 U/L (39-117); Anion Gap 13 (12-20); Aspartate Amino Transferase 16 U/L (5-31); Bilirubin Total 0.3 mg/dL (0.0-1.0); Blood Urea Nitrogen 13 mg/dL (9-16); Calcium 9.3 mg/dL (8.4-10.2); Carbon Dioxide 23 mmol/L (22-29); Chloride 107 mmol/L (96-108); Creatinine Clr Calc Pharmacy 106.4; Estimated Glomerular Filt Rate > 60; Glucose Random 109 mg/dL (60-115); Potassium 3.6 mmol/L (3.3-5.1); Sodium 139 mmol/L (135-145); Total Protein 7.2 g/dL (6.5-8.0)
[2023-12-17 00:16] LABS: Troponin-I High Sensitivity < 2.7 ng/L (<3.5-17.0)
[2023-12-17 03:00] VITALS: BP 119/70; PULSE 77; RESP 18; TEMP 36.8; O2SAT 99
== END 2023-12-17 03:23 | disposition left against medical advice (07) ==
PROVIDERS: Emergency Provider Emergency Medicine; PCP Internal Medicine
DX: R10.9 Unspecified abdominal pain (principal)
CPT/HCPCS: 36415; 80053; 84484; 85025; 93005; 99283

== ENCOUNTER → 2023-12-16 23:01 | Outpatient (BNV) | payer OTHER, SELFPAY | PROVIDERS: Emergency Provider Emergency Medicine; PCP Internal Medicine; Visit Provider Internal Medicine | DX: I49.8 Other specified cardiac arrhythmias (principal) | CPT/HCPCS: 93010 ==

== ENCOUNTER 2024-01-09 08:51 | Outpatient (AMB) | payer OTHER, SELFPAY ==
--- NOTE | 2024-01-09 08:53 | MHC.PC.OV ---
Vital Signs 01/09/24 08:55 Height 5 ft 10 in Weight 155 lb BMI 22.2 BP 120/80 Blood Pressure Location Rt brachial Position Sitting Pulse 67 Pulse Source Pulse Oximeter Pulse Oximetry (%) 98 Oxygen Delivery Method Room Air Intake Visit Reasons: Stomach problem, throat problem Allergies Sulfa (Sulfonamide Antibiotics) Allergy (Unknown, Verified 01/09/24 08:55) nausea Medication List - Last Reconciled 01/09/24 by Irving Han MD albuterol sulfate 90 mcg/actuation (ProAir HFA) 1 inh inhalation QID PRN 30 days omeprazole 20 mg PO DAILY Tobacco use date assessed: 11/26/23 Dental Screening Dental Screen Date: 11/26/23 HPI Stomach problem, throat problem HPI Details Patient is a 38-year-old female came in today to talk about her medical issues Patient is still having sensation of foreign body in her throat Omeprazole that was started by me once a day has helped her I have told her to increase the dose to b.i.d. Patient is already following dietary instructions Four weeks ago patient accidentally swallowed pain thinner instead of water She said that it was ordered less so she did not realize She was evaluated in emergency room Patient says that the ENT appointment is in until May and she does not want to wait that long She would like to go to [place], she will find a doctor for herself and will get back to me if she needs any paperwork sent over I have also placed referral for her to be evaluated for Gastroenterology Since patient has benefitted from PPI, she might need EGD for ongoing symptoms She tells me that her grandmother and her mother both had stomach issues Grandmother also had stomach cancer. Patient want a referral to OBGYN at [facility] which I have placed for her [facility], [facility] Family History Brother Substance use disorder Mental health disorder Maternal Aunt Substance use disorder Mental health disorder Mother Substance use disorder Mental health disorder Father Substance use disorder Social History Housing: Apartment Alcohol intake: current Alcohol intake frequency: holidays/special occasions only Patient Tobacco Use Status: Never used Tobacco e-Cigarette/Vaping Use: Never Used Current occupational status: employed Cognitive needs: No Hearing needs: No Vision needs: No Questionnaire Thrive Questionnaire Date Thrive assessed: 11/26/23 ALEXANDER-7 AMB Questionnaire ALEXANDER-7 Date ALEXANDER - 7 assessed: 11/26/23 Source: Developed by Drs. Eliot Alford, Zunilda Jennings, Vaughn Call and colleagues, with an educational sourav from [employer]. Review of Systems Const Denies chills and Denies fever(s) ENT Denies epistaxis and Denies nasal discharge Card Denies chest pain Resp Denies chest congestion and Denies hemoptysis GI Denies diarrhea and Denies nausea Skin/Breast Denies rash Neuro Reports no additional complaints Psych Reports no additional complaints Endo Reports no additional complaints Physical exam (Primary Care) Vital Signs: Last Vital Signs Pulse 67 01/09/24 08:55 BP 120/80 01/09/24 08:55 Pulse Ox 98 01/09/24 08:55 Oxygen Delivery Method Room Air 01/09/24 08:55 BMI result Body Mass Index 22.2 Tobacco/Smoking Status: Tobacco use Status Tobacco use date assessed 11/26/23 01/09/24 08:55 Patient Tobacco Use Status Never used Tobacco 01/09/24 08:55 e-Cigarette/Vaping Use Never Used 01/09/24 08:55 Thrive Assessment: Date of Thrive Assessment Date Thrive assessed 11/26/23 01/09/24 08:55 Const General: cooperative, comfortable and no acute distress Orientation/consciousness: patient oriented x3 HENMT Other: Throat exam normal Head: Yes normocephalic Eyes General: appearance normal, both eyes and all related structures Neck Neck: Yes supple Resp Effort & Inspection: normal respiratory effort, no cough and no stridor Cardio Rhythm: regular rhythm Heart sounds: S1 normal heart sound present and S2 normal heart sound present GI Other: Mild epigastric discomfort with pressure, bowel sounds positive Skin General skin exam: turgor normal Neuro General: patient oriented x3, tone normal and moves all extremities Extrem Right lower extremity: no edema Left lower extremity: no edema Assessment and Plan Assessment & Plan (1) Hoarseness of voice: Code(s): R49.0 - Dysphonia (2) Acid reflux: Code(s): K21.9 - Gastro-esophageal reflux disease without esophagitis Qualifiers: Esophagitis presence: without esophagitis Qualified Code(s): K21.9 - Gastro-esophageal reflux disease without esophagitis (3) Throat irritation: Code(s): J39.2 - Other diseases of pharynx (4) Accidental ingestion of substance: Code(s): T65.91XA - Toxic effect of unspecified substance, accidental (unintentional), initial encounter Qualifiers: Encounter type: sequela Qualified Code(s): T65.91XS - Toxic effect of unspecified substance, accidental (unintentional), sequela Plan Patient is a 38-year-old female came in today to talk about her medical issues Patient is still having sensation of foreign body in her throat Omeprazole that was started by me once a day has helped her I have told her to increase the dose to b.i.d. Patient is already following dietary instructions Four weeks ago patient accidentally swallowed pain thinner instead of water She said that it was ordered less so she did not realize She was evaluated in emergency room She still have slight bowel issues but it is getting better Patient says that the ENT appointment is in until May and she does not want to wait that long She would like to go to [place], she will find a doctor for herself and will get back to me if she needs any paperwork sent over I have also placed referral for her to be evaluated for Gastroenterology Since patient has benefitted from PPI, she might need EGD for ongoing symptoms She tells me that her grandmother and her mother both had stomach issues Grandmother also had stomach cancer. She is concerned about H pylori, which can be tested with EGD Patient want a referral to OBGYN at [facility] which I have placed for her 50 minutes spent in care of this patient including [id number], placing referrals, charting, reviewing charts Coordination of care Orders: Referrals Gastroenterology Referral K21.9 - Gastro-esophageal reflux disease without esophagitis, R49.0 - Dysphonia IT CONSULTING DIRECTOR Referral Z01.419 - Encounter for gynecological examination (general) (routine) without abnormal findings Medications: New omeprazole 20 mg PO BID 90 days 180 tabs 0RF Coding Level of Care Code Est Pt Level 5 (61416) Diagnoses Hoarseness of voice R49.0 Gastroesophageal reflux disease without esophagitis K21.9 Esophagitis presence: without esophagitis Throat irritation J39.2 Accidental ingestion of substance, sequela T65.91XS Encounter type: sequela
[2024-01-09 08:55] VITALS: BP 120/80; PULSE 67; O2SAT 98; BMI 22.2
== END 2024-01-09 09:10 | disposition home or self-care (01) ==
PROVIDERS: PCP Internal Medicine; Visit Provider Internal Medicine
DX: R49.0 Dysphonia (principal); K21.9 Gastro-esophageal reflux disease without esophagitis; J39.2 Other diseases of pharynx; T65.91XS Toxic effect of unspecified substance, accidental (unintentional), sequela
CPT/HCPCS: 99215

== ENCOUNTER 2024-01-15 09:56 | Outpatient (AMB) | payer OTHER, SELFPAY ==
[2024-01-15 09:57] VITALS: BP 116/75; PULSE 100; BMI 22.3
--- NOTE | 2024-01-15 09:57 | MHC.OFFVIS ---
Vital Signs 01/15/24 09:57 Height 5 ft 10 in Weight 155 lb 10.342 oz BMI 22.3 BP 116/75 Blood Pressure Location Lt brachial Position Sitting Pulse 100 Intake Visit Reasons: Gastroesophageal reflux disease (GERD) Intake Note: Tasneem presents in the office as a new patient for GERD. CC: She states that she is not sure if it is GERD or not - she states there is no clinical diagnosis. She was asked to be tested for H Pylori - sent here. Field Support Technician Required: No Allergies Sulfa (Sulfonamide Antibiotics) Allergy (Unknown, Verified 01/15/24 09:59) nausea HPI HPI Gastroesophageal reflux disease (GERD): Details: 38 years old with past medical history of asthma is here today for initial consultation. Patient was sent to us by her PCP. Patient reports that in the past few months she has been having symptoms of epigastric pain no matter what she eats. Patient reports that few months ago while she was painting in her works up she accidentally picked up a bottle of pain in her that looked clear and was older less and she felt immediately burning in her throat. Patient was placed on omeprazole once a day and then the dose just got increased to twice a day. Patient reports that she is not sure if she feels any different. Was sent by PCP to get endoscopy and H pylori testing. Patient denies any nausea or vomiting. Reports to have a fair appetite. Denies any weight loss. [facility] Family History (Updated 01/15/24 @ 10:00 by LENNIE Moody) Brother Substance use disorder Mental health disorder Maternal Aunt Substance use disorder Mental health disorder Stomach cancer Mother Substance use disorder Mental health disorder Father Substance use disorder Maternal Grandmother History of intestinal surgery Social History Housing: Apartment Alcohol intake: current Alcohol intake frequency: holidays/special occasions only Patient Tobacco Use Status: Never used Tobacco e-Cigarette/Vaping Use: Never Used Current occupational status: employed Cognitive needs: No Hearing needs: No Vision needs: No Review of Systems Const Denies weight gain and Denies weight loss ENT Reports no additional complaints, Denies dysphagia and Denies odynophagia Card Reports no additional complaints Resp Reports no additional complaints GI Reports abdominal pain (Epigastric), Denies belching, Denies melena, Denies bloating, Denies change in bowel habits, Denies dysphagia, Denies excessive flatus, Denies dyspepsia, Reports heartburn, Denies diarrhea, Denies loose stools, Denies nausea, Denies odynophagia and Denies vomiting Reports no additional complaints Musc Reports no additional complaints Neuro Reports no additional complaints Psych Reports no additional complaints Endo Reports no additional complaints Physical Exam Vital Signs: Last Vital Signs Pulse 100 01/15/24 09:57 BP 116/75 01/15/24 09:57 BMI result Body Mass Index 22.3 Const General: healthy appearing, no acute distress and well developed Nutritional Appearance: well nourished Orientation/consciousness: patient oriented x3 Resp Effort & Inspection: normal respiratory effort, able to speak in complete sentences, no tracheal deviation and symmetric chest movement Auscultation: clear to auscultation bilaterally Cardio Rate: regular rate GI Inspection: Yes normal to inspection and No distended Palpation (GI): Soft to palpation, not firm, nontender and No hepatosplenomegaly present Auscultation: normal bowel sounds General: Yes no CVA tenderness Back/Spine/Pelvis Back: no CVA tenderness Skin General skin exam: elasticity normal, turgor normal and dry skin Neuro General: patient oriented x3 Psych Appearance: grossly normal Mental Status: mental status grossly normal Assessment & Plan Assessment & Plan (1) Throat irritation: Code(s): J39.2 - Other diseases of pharynx Category: Medical (2) Accidental ingestion of substance: Code(s): T65.91XA - Toxic effect of unspecified substance, accidental (unintentional), initial encounter Category: Medical Qualifiers: Encounter type: sequela Qualified Code(s): T65.91XS - Toxic effect of unspecified substance, accidental (unintentional), sequela (3) Acid reflux: Code(s): K21.9 - Gastro-esophageal reflux disease without esophagitis Category: Medical Qualifiers: Esophagitis presence: without esophagitis Qualified Code(s): K21.9 - Gastro-esophageal reflux disease without esophagitis (4) Postprandial epigastric pain: Code(s): R10.13 - Epigastric pain Plan Will send patient for H pylori testing. Will stop omeprazole and will put her on Pepcid. Patient will stop Pepcid 24 hours before her scheduled breath test. 1 hour NPO before breath test. Will treat empirically if positive. Patient will be sent for upper endoscopy to rule out esophagitis, gastritis, duodenitis, gastric or peptic ulcers, Garsia's. Check for celiac and pancreatitis. I will see patient after endoscopy, sooner on as needed basis. She is agreeable to this plan and verbalizes understanding of instructions. She was given the opportunity to ask questions and all questions answered. Thank you for allowing me to participate in her care Orders: Orders Transglutaminase IgA Today R10.9 - Unspecified abdominal pain Transglutaminase Ab IgG Today R10.9 - Unspecified abdominal pain Lipase Today R10.9 - Unspecified abdominal pain H Pylori Breath Test Today K21.9 - Gastro-esophageal reflux disease without esophagitis Medications: New famotidine (Pepcid) 20 mg PO BEDTIME 30 tabs 0RF K21.9 - Gastro-esophageal reflux disease without esophagitis Coding Level of Care Code New Pt Level 4 (80634) Diagnoses Throat irritation J39.2 Accidental ingestion of substance, sequela T65.91XS Encounter type: sequela Gastroesophageal reflux disease without esophagitis K21.9 Esophagitis presence: without esophagitis Postprandial epigastric pain R10.13 Time Spent (min) 45 Comment 30 minutes spent with patient and additional 10 minutes spent reviewing her records
== END 2024-01-15 10:49 | disposition home or self-care (01) ==
PROVIDERS: PCP Internal Medicine; Visit Provider Nurse Practitioner Family
DX: J39.2 Other diseases of pharynx (principal); T65.91XS Toxic effect of unspecified substance, accidental (unintentional), sequela; K21.9 Gastro-esophageal reflux disease without esophagitis; R10.13 Epigastric pain
CPT/HCPCS: 99204

== ENCOUNTER → 2024-01-15 09:56 | Outpatient (BNVA) | payer OTHER, SELFPAY | PROVIDERS: PCP Internal Medicine; Visit Provider Nurse Practitioner Family ==

== ENCOUNTER 2024-01-29 09:23 | Outpatient (AMB) | payer OTHER, SELFPAY ==
--- NOTE | 2024-01-29 13:39 | AM.OFFVISNUR ---
Intake Intake Visit Reasons: H.pylori breath test Intake Note: Patient presents for collection of H Pylori breath test. Patient has been fasting for 1 hour (nothing to eat, drink, no chewing gum or smoking) has not taken any antacid medication for at least 2 weeks and has no allergies to artificial sweeteners.?? Allergies Sulfa (Sulfonamide Antibiotics) Allergy (Unknown, Verified 01/15/24 09:59) nausea Coding Level of Care Code Est Pt Level 1 (24023) Diagnoses Gastroesophageal reflux disease without esophagitis K21.9 Esophagitis presence: without esophagitis Throat irritation J39.2 Assessment & Plan Assessment & Plan (1) Acid reflux: Code(s): K21.9 - Gastro-esophageal reflux disease without esophagitis Category: Medical Qualifiers: Esophagitis presence: without esophagitis Qualified Code(s): K21.9 - Gastro-esophageal reflux disease without esophagitis (2) Throat irritation: Code(s): J39.2 - Other diseases of pharynx Category: Medical Plan Patient presents for collection of H Pylori breath test. Patient has been fasting for 1 hour (nothing to eat, drink, no chewing gum or smoking) has not taken any antacid medication for at least 2 weeks and has no allergies to artificial sweeteners.???This test checks for an overgrowth of bacteria in your stomach. We all have bacteria but some may have more than others. It is treatable. if the test comes back negative there is nothing else to do. If the test result is positive we will treat you with 2 antibiotics and a medication to decrease the acid in your stomach (PPI) for 2 weeks. Two weeks after you have completed the treatment we will retest you to make sure the overgrowth has resolved. Patient Instructions: Process for specimen collection and reason for testing was explained to the patient. Specimen collection. Patient instructed to take a deep breath and then exhale into the blue bag, filling it up as much as possible. Patient instructed to drink a mixture of water and the artificial sweetener with a straw. A 15 minute wait period was observed. Patient instructed to take a deep breath and then exhale into the pink bag, filling it up as much as possible.??
== END 2024-01-29 10:27 | disposition home or self-care (01) ==
PROVIDERS: PCP Internal Medicine; Visit Provider Nurse Practitioner Family
DX: K21.9 Gastro-esophageal reflux disease without esophagitis (principal); J39.2 Other diseases of pharynx

== ENCOUNTER → 2024-01-29 09:23 | Outpatient (BNVA) | payer OTHER, SELFPAY | PROVIDERS: PCP Internal Medicine; Visit Provider Nurse Practitioner Family | DX: Z11.0 Encounter for screening for intestinal infectious diseases (principal); K21.9 Gastro-esophageal reflux disease without esophagitis; J39.2 Other diseases of pharynx | CPT/HCPCS: 99211 ==

== ENCOUNTER 2024-01-29 15:16 | Outpatient (REF) | payer OTHER, SELFPAY ==
[2024-02-04 10:00] LABS: H Pylori Breath Test Negative (Negative)
== END 2024-01-29 15:17 | disposition home or self-care (01) ==
LOC: HO.LNP 15:16
PROVIDERS: Visit Provider Nurse Practitioner Family
DX: K21.9 Gastro-esophageal reflux disease without esophagitis (principal)
CPT/HCPCS: 83013

== ENCOUNTER 2024-04-09 09:53 | Outpatient (AMB) | payer OTHER, SELFPAY ==
[2024-04-09 09:55] VITALS: BP 120/78; PULSE 90; O2SAT 98; BMI 22.3
--- NOTE | 2024-04-09 09:55 | MHC.PC.OV ---
Vital Signs 04/09/24 09:55 Height 5 ft 10 in Weight 155 lb 2 oz BMI 22.3 BP 120/78 Blood Pressure Location Rt brachial Position Sitting Pulse 90 Pulse Source Pulse Oximeter Pulse Oximetry (%) 98 Oxygen Delivery Method Room Air Intake Visit Reasons: Annual PE Allergies Sulfa (Sulfonamide Antibiotics) Allergy (Unknown, Verified 04/09/24 09:56) nausea Medication List - Last Reconciled 04/09/24 by Irving Han MD albuterol sulfate 90 mcg/actuation (ProAir HFA) 1 inh inhalation QID PRN 30 days polyethylene glycol 3350 (Miralax) 17 grams PO DAILY Tobacco use date assessed: 04/09/24 Dental Screening Dental Screen Date: 04/09/24 Did you have a dental visit in the last 12 months?: Yes Did you have a dental problem in the last 6 months where you did not have access to dental care?: No Was dental information given to patient?: Patient has dentist HPI Annual PE HPI Details Patient is a 38-year-old female came in today for physical examination Labs were done November of this year reviewed However patient is having tiredness and also complaining of paresthesia in her feet and arms I have placed an order for Lyme test as well as B12 metabolic profile She also would like to see a neurologist for further evaluation, referral placed Her swallowing issue has gotten better since she has stopped taking PPI and famotidine Patient will be having EGD done in May She also have ENT appointment in May Patient says that she is flying to [place] and she has a flight phobia Requesting few tablets of lorazepam which I have sent after reviewing the side effects Patient does not want to go due [facility] Referral was placed to [facility] in December but she is still do not have the appointment I have given her the telephone number she will call in book her own appointment Follow-up 1 year physical exam PFSH Family History Brother Substance use disorder Mental health disorder Maternal Aunt Substance use disorder Mental health disorder Stomach cancer Mother Substance use disorder Mental health disorder Father Substance use disorder Maternal Grandmother History of intestinal surgery Social History Housing: Apartment Alcohol intake: current Alcohol intake frequency: holidays/special occasions only Patient Tobacco Use Status: Never used Tobacco e-Cigarette/Vaping Use: Never Used Current occupational status: employed Cognitive needs: No Hearing needs: No Vision needs: No Questionnaire PHQ-9 Over the last 2 weeks, how often have you been bothered by any of the following problems? 1. Little interest or pleasure in doing things: not at all 2. Feeling down, depressed, or hopeless: not at all 3. Trouble falling or staying asleep, or sleeping too much: not at all 4. Feeling tired or having little energy: not at all 5. Poor appetite or overeating: not at all 6. Feeling bad about yourself - or that you are a failure or have let yourself or your family down: not at all 7. Trouble concentrating on things, such as reading the newspaper or watching television: not at all 8. Moving or speaking so slowly that other people could have noticed. Or the opposite - being so fidgety or restless that you have been moving around a lot more than usual: not at all 9. Thoughts that you would be better off or of hurting yourself in some way: not at all Total score: 0 Depression Screening Interpretation: Negative Depression Screening Done: Yes 81136 - PHQ-9 Billing: Yes Source: Developed by Drs. Eliot Alford, Zunilda Jennings, Vaughn Call and colleagues, with an educational sourav from [employer]. Thrive Questionnaire Date Thrive assessed: 04/09/24 I am a: Patient What is your living situation today?: I have a steady place to live Within the past 12 months, did the food you bought not last and you didn't have the money to get more?: Never true Within the past 12 months, did you worry whether your food would run out before you got money to buy more?: Never true Do you have trouble paying for medicines?: No Do you have trouble getting transportation to medical appointments?: No Do you have trouble paying your heating and electricity bill?: No Do you have trouble taking care of your child, family member or friend?: No Do you have trouble with day-to-day activities such as bathing, preparing meals, shopping, managing finances, etc.?: No Are you currently unemployed and looking for a job?: No Are you interested in more education?: No Please select the resources that you would like help with: None Currently or been in a relationship where the following occur: No concerns reported THRIVE Score: 0 AUDIT C Alcohol Use Questionnaire (AUDIT-C) 1. How often do you have a drink containing alcohol?: Never 3. How often do you have six or more drinks on one occasion?: Never Total Score: 0 Score Reviewed/Action Taken: Yes ALEXANDER-7 AMB Questionnaire ALEXANDER-7 Date ALEXANDER - 7 assessed: 04/09/24 Feeling nervous, anxious, or on edge: 0 = Not at all Not being able to stop or control worryin = Not at all Worrying too much about different things: 0 = Not at all Trouble relaxin = Not at all Being so restless that it is hard to sit still: 0 = Not at all Becoming easily annoyed or irritable: 0 = Not at all Feeling afraid as if something awful might happen: 0 = Not at all Total ALEXANDER-7 score (0-4 normal; 5-9 mild; 10-14 moderate; 15-21 severe): 0 Source: Developed by Drs. Eliot Alford, Zunilda Jennings, Vaughn Call and colleagues, with an educational sourav from [employer]. ALEXANDER-7 Assessment Billing ALEXANDER-7 Assessment Tool: ALEXANDER-7 Assessment [id number] Review of Systems Const Denies chills, Denies fever(s) and Denies headache(s) Eyes Denies blurry vision ENT Denies headache(s), Denies nasal discharge, Denies nasal obstruction, Denies odynophagia and Denies sinus pain Card Denies chest pain at rest and Denies chest pain with activity Resp Denies cough and Denies hemoptysis GI Denies diarrhea, Denies odynophagia, Denies vomiting and Denies hematemesis Reports as per HPI Musc Denies abnormal gait Skin/Breast Reports as per HPI Neuro Denies Neuro-related abnormal movements, Denies Abnormal speech present, Denies abnormal gait and Denies headache(s) Psych Denies mood swings and Denies paranoia Endo Reports as per HPI Shay/Lymph Reports as per HPI Aller/Immun Reports as per HPI Physical exam (Primary Care) Vital Signs: Last Vital Signs Pulse 90 04/09/24 09:55 BP 120/78 08/23/24 09:55 Pulse Ox 98 04/09/24 09:55 Oxygen Delivery Method Room Air 04/09/24 09:55 BMI result Body Mass Index 22.3 Tobacco/Smoking Status: Tobacco use Status Tobacco use date assessed 04/09/24 04/09/24 10:02 Patient Tobacco Use Status Never used Tobacco 04/09/24 09:56 e-Cigarette/Vaping Use Never Used 04/09/24 09:56 PHQ-9: PHQ-9 Score PHQ-9: Total score 0 04/09/24 10:12 Depression Screening Interpretation: Negative Thrive Assessment: Date of Thrive Assessment Date Thrive assessed 04/09/24 04/09/24 10:02 Currently or been in a relationship where the following occur: No concerns reported Const General: cooperative, comfortable and no acute distress Orientation/consciousness: patient oriented x3 HENMT Head: Yes normocephalic and Yes atraumatic Eyes General: appearance normal, both eyes and all related structures Pupils: Equal, round and reactive pupils present EOM: EOMs intact bilaterally Neck Neck: Yes supple and No lymphadenopathy Thyroid: Thyroid normal Lymphatic: no lymphadenopathy noted Chest Breast/axilla palpation: normal palpation of the breasts Resp Effort & Inspection: normal respiratory effort and able to speak in complete sentences Auscultation: clear to auscultation bilaterally Cardio Heart sounds: S1 normal heart sound present and S2 normal heart sound present GI Palpation (GI): Soft to palpation and nontender Auscultation: normal bowel sounds General: Yes no CVA tenderness Back/Spine/Pelvis Back: no CVA tenderness Skin General skin exam: elasticity normal and turgor normal Neuro General: patient oriented x3 and gait normal Cranial nerves: Yes Equal, round and reactive pupils present Speech: No Abnormal speech present Coordination: tandem gait normal and Romberg test negative Extrem General: Yes normal exam except as noted and No edema Assessment and Plan Assessment & Plan (1) Encounter for general adult medical examination with abnormal findings: Code(s): Z00.01 - Encounter for general adult medical examination with abnormal findings (2) Paresthesia: Code(s): R20.2 - Paresthesia of skin (3) 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 - Fear of flying (4) Tired: Code(s): R53.83 - Other fatigue (5) Environmental allergies: Code(s): Z91.09 - Other allergy status, other than to drugs and biological substances (6) Asthma, intermittent: Code(s): J45.20 - Mild intermittent asthma, uncomplicated Qualifiers: Asthma complication type: uncomplicated Asthma severity: mild Qualified Code(s): J45.20 - Mild intermittent asthma, uncomplicated (7) Acid reflux: Code(s): K21.9 - Gastro-esophageal reflux disease without esophagitis Qualifiers: Esophagitis presence: without esophagitis Qualified Code(s): K21.9 - Gastro-esophageal reflux disease without esophagitis Plan Patient is a 38-year-old female came in today for physical examination Labs were done November of this year reviewed However patient is having tiredness and also complaining of paresthesia in her feet and arms I have placed an order for Lyme test as well as B12 metabolic profile She also would like to see a neurologist for further evaluation, referral placed Her swallowing issue has gotten better since she has stopped taking PPI and famotidine Patient will be having EGD done in May She also have ENT appointment in May Patient says that she is flying to [place] and she has a flight phobia Requesting few tablets of lorazepam which I have sent after reviewing the side effects Patient does not want to go due [facility] Referral was placed to [facility] in December but she is still do not have the appointment I have given her the telephone number she will call in book her own appointment Follow-up 1 year physical exam Orders: Orders Comprehensive Met. Panel Today J45.20 - Mild intermittent asthma, uncomplicated, K21.9 - Gastro-esophageal reflux disease without esophagitis, R53.83 - Other fatigue, Z00.01 - Encounter for general adult medical examination with abnormal findings, Z91.09 - Other allergy status, other than to drugs and biological substances Complete Blood Count Auto Diff Today J45.20 - Mild intermittent asthma, uncomplicated, K21.9 - Gastro-esophageal reflux disease without esophagitis, R53.83 - Other fatigue, Z00.01 - Encounter for general adult medical examination with abnormal findings, Z91.09 - Other allergy status, other than to drugs and biological substances Vitamin D 25-OH (D2 and D3) Today J45.20 - Mild intermittent asthma, uncomplicated, K21.9 - Gastro-esophageal reflux disease without esophagitis, R53.83 - Other fatigue, Z00.01 - Encounter for general adult medical examination with abnormal findings, Z91.09 - Other allergy status, other than to drugs and biological substances Lyme IgG/IgM w/reflex to WB Today J45.20 - Mild intermittent asthma, uncomplicated, K21.9 - Gastro-esophageal reflux disease without esophagitis, R53.83 - Other fatigue, Z00.01 - Encounter for general adult medical examination with abnormal findings, Z91.09 - Other allergy status, other than to drugs and biological substances Referrals Neurology Referral R20.2 - Paresthesia of skin Medications: New lorazepam 0.5 mg PO DAILY PRN 5 tabs 0RF Flight phobia 5 days Coding Level of Care Code Est Pt Level 4 (31285) Est Pt Prev Care 18-39y(03757) Diagnoses Encounter for general adult medical examination with abnormal findings Z00.01 Paresthesia R20.2 Fear of flying F40.243 Tired R53.83 Environmental allergies Z91.09 Mild intermittent asthma without complication J45.20 Asthma complication type: uncomplicated Asthma severity: mild Gastroesophageal reflux disease without esophagitis K21.9 Esophagitis presence: without esophagitis Additional Codes ALEXANDER-7 Assessment Billing - ALEXANDER-7 Assessment Tool: ALEXANDER-7 Assessment [id number] ([id number])
== END 2024-04-09 10:29 | disposition home or self-care (01) ==
PROVIDERS: PCP Internal Medicine; Visit Provider Internal Medicine
DX: Z00.00 Encounter for general adult medical examination without abnormal findings (principal); R20.2 Paresthesia of skin; F40.243 Fear of flying; R53.83 Other fatigue; Z91.09 Other allergy status, other than to drugs and biological substances; J45.20 Mild intermittent asthma, uncomplicated; K21.9 Gastro-esophageal reflux disease without esophagitis
CPT/HCPCS: 99214; 99395

== ENCOUNTER 2024-04-09 10:30 | Outpatient (REF) | payer OTHER, SELFPAY ==
[2024-04-09 13:09] LABS: MANUAL DIFF FLAG NO
[2024-04-09 13:38] LABS: Basophils Percent Auto 0.4 % (0-2); Eosinophils Percent Auto 0.7 % (0-4); Hematocrit 42.9 % (37.0-47.0); Hemoglobin 14.4 g/dl (12.0-16.0); Imm Gran Abs Auto 0.02 X10*3/uL (0.00-0.03); Imm Gran Pct Auto 0.4 % (0.0-0.4); Lymphocytes Absolute Auto 2.1 X10*3/uL (1.2-4.9); Mean Corpuscular HGB Conc 33.6 g/dl (31.0-35.0); Mean Corpuscular Hemoglobin 30.4 pg (27.0-33.0); Mean Corpuscular Volume 90.5 fL (80.0-98.0); Mean Platelet Volume 10.3 fL (9.4-12.3); Monocytes Absolute Auto 0.5 X10*3/uL (0.1-1.2); Monocytes Percent Auto 9.9 % (2-11); Neutrophils Absolute Auto 2.8 x10*3/uL (2.0-8.3); Neutrophils Percent Auto 50.6 % (45-73); Platelet Count 304 X10*3/uL (160-400); Red Blood Count 4.74 X10*6/uL (4.20-5.50); Red Cell Distribution Width 11.9 % (11.0-16.0); White Blood Count 5.5 X10*3/uL (4.8-10.8)
[2024-04-09 14:07] LABS: Alanine Aminotransferase 17 U/L (0-31); Albumin Level 4.6 g/dL (3.5-5.0); Alkaline Phosphatase 81 U/L (39-117); Anion Gap 10 (12-20); Aspartate Amino Transferase 20 U/L (5-31); Bilirubin Total 0.3 mg/dL (0.0-1.0); Blood Urea Nitrogen 8 mg/dL (9-16); Calcium 9.8 mg/dL (8.4-10.2); Carbon Dioxide 27 mmol/L (22-29); Chloride 107 mmol/L (96-108); Estimated Glomerular Filt Rate > 60; Glucose Random 68 mg/dL (60-115); Sodium 140 mmol/L (135-145)
[2024-04-13 17:28] LABS: Lyme Abs Screen <0.90 index
[2024-04-15 11:33] LABS: Vitamin D 25-OH, D2 <4 ng/mL; Vitamin D 25-OH, D3 30 ng/mL; Vitamin D 25-OH, Total 30 ng/mL (30-100)
== END 2024-04-09 10:31 | disposition home or self-care (01) ==
LOC: HO.HMGCLDS 10:30
PROVIDERS: PCP Internal Medicine; Referring Provider Nurse Practitioner Family; Visit Provider Internal Medicine
DX: Z00.01 Encounter for general adult medical examination with abnormal findings (principal); R53.83 Other fatigue; Z91.09 Other allergy status, other than to drugs and biological substances; J45.20 Mild intermittent asthma, uncomplicated; K21.9 Gastro-esophageal reflux disease without esophagitis
CPT/HCPCS: 36415; 80053; 82306; 85025; 86617; 86618

== ENCOUNTER 2024-06-02 10:34 | Day surgery (SDC) | payer OTHER, SELFPAY ==
--- NOTE | 2024-06-01 09:12 | HO.ANESPROP2 ---
Documented by User: Ranjana Metcalf NP 06/01/24 09:12 HPI - Anesthesia Eval Consult details Narrative: 38yo F for Upper Endoscopy PMFSH Active Problems Active Problems: All Active Problems Fear of flying (Acute) Paresthesia (Acute) Accidental ingestion of substance (Acute) Throat irritation (Acute) Acid reflux (Acute) Encounter for routine gynecological examination (Acute) Asthma, intermittent (Acute) Dry cough (Acute) Difficulty speaking (Acute) Hoarseness of voice (Acute) Trouble getting to sleep (Acute) Environmental allergies (Acute) Mild asthma (Acute) Rash (Acute) Acne cystica (Acute) Tired (Acute) Encounter for general adult medical examination with abnormal findings (Acute) Family History Family History Brother Substance use disorder Mental health disorder Maternal Aunt Substance use disorder Mental health disorder Stomach cancer Mother Substance use disorder Mental health disorder Father Substance use disorder Maternal Grandmother History of intestinal surgery Social History Social History Housing: Apartment Alcohol intake: current Alcohol intake frequency: holidays/special occasions only Patient Tobacco Use Status: Never used Tobacco e-Cigarette/Vaping Use: Never Used Use of substances other than those prescribed or required for medical reasons: No Are you DNR?: No Advance Directives: No Advance Directives Information Provided: Yes Current occupational status: employed Cognitive needs: No Hearing needs: No Vision needs: No Meds Allergies Allergy/AdvReac Type Severity Reaction Status Date / Time Sulfa (Sulfonamide Allergy Unknown nausea Verified 04/09/24 09:56 Antibiotics) Home Medications ?Medication ?Instructions ?Recorded ?Confirmed ?Last Taken ?Type polyethylene glycol 3350 17 gram 17 g PO DAILY 04/09/24 04/09/24 Unknown History oral powder packet (Miralax) Assessment and Plan Assessment Anesthesia Assessment: Chart Reviewed Documented by User: Ladan Overton MD 06/02/24 13:30 PMFSH Family History Family History Brother Substance use disorder Mental health disorder Maternal Aunt Substance use disorder Mental health disorder Stomach cancer Mother Substance use disorder Mental health disorder Father Substance use disorder Maternal Grandmother History of intestinal surgery Family history of problems with anesthesia: No Surgical History History of Problems with Anesthesia: No Social History Social History Housing: Apartment Alcohol intake: current Alcohol intake frequency: holidays/special occasions only Patient Tobacco Use Status: Never used Tobacco e-Cigarette/Vaping Use: Never Used Use of substances other than those prescribed or required for medical reasons: No Are you DNR?: No Advance Directives: No Advance Directives Information Provided: Yes Current occupational status: employed Cognitive needs: No Hearing needs: No Vision needs: No Meds Allergies Allergy/AdvReac Type Severity Reaction Status Date / Time Sulfa (Sulfonamide Allergy Unknown nausea Verified 04/09/24 09:56 Antibiotics) Home Medications ?Medication ?Instructions ?Recorded ?Confirmed ?Last Taken ?Type polyethylene glycol 3350 17 gram 17 g PO DAILY 04/09/24 04/09/24 Unknown History oral powder packet (Miralax) Exam Airway Mallampati Class: II TM Dist: >3cm Neck ROM: Full Heart: rrr Lungs: cta Assessment and Plan Assessment Anesthesia Assessment: Anesthesia Plan Discussed Final Anesthetic Review Family History of Problems with Anesthesia: No History of Problems with Anesthesia: No NPO: Yes ASA Class: II Final Preanesthetic Review: No Changes in Pt Med Stat, Meds/Allgs Chart Reviewed, Consent Obtained/Reviewed and Anes Risks/Benef Reviewed Patient Risk: Low Procedure Risk: Low Anesthetic Plan Anesthetic Plan: MAC: Disposition: Standard PACU
[2024-06-02 11:51] VITALS: BMI 22.0
[2024-06-02 12:11] VITALS: BP 117/72; PULSE 66; RESP 16; TEMP 36.9; O2SAT 97
[2024-06-02 12:11] LABS: UPreg QC Valid YES; Urine Pregnancy NEGATIVE (NEGATIVE)
--- NOTE | 2024-06-02 12:34 | MHC.SHP ---
Pre-Procedural Eval Section A - 24 Hr Update-Section A only Date of Service: 06/02/24 Section B - Complete if H&P > 30 days Chief Complaint: Gastro-esophageal reflux disease without esophagit Relevant Family History (Specify if Yes): No Relevant Social History: None Present Medications: see Short Stay Collaborative assessment Medical History: Significant History (acid reflux,asthma) History of Previous Operations: No relevant previous surgery Allergies: Allergies Allergy/AdvReac Type Severity Reaction Status Date / Time Sulfa (Sulfonamide Allergy Unknown nausea Verified 04/09/24 09:56 Antibiotics) Review of Systems Sugical H&P ROS: Negative: Constitution, Cardiovascular, Respiratory, Neurological, Psychiatric, Hem-Onc, Allergic/Immunologic, Gastrointestinal, Genitourinary, Musculoskeletal, Integumentary, Endocrine and Eyes/Ears/Nose/Throat Exam Surgical H&P Exam: Normal: HEENT, Normal: Heart, Normal: Lungs, Normal: Extremities, Normal: Abdomen, Normal: Skin and Normal: Neurological Plan Diagnosis/Plan: Unchanged I have reviewed the history and physical and performed a pertinent physical examination on my patient. No changes have occurred unless specified. Time Spent With Patient Time: Total time managing care of this patient today ____ minutes.
--- NOTE | 2024-06-02 13:07 | W.PM.OPN ---
Operative Note Operative Note Date of Service: 06/02/24 Narrative: Procedure Description: EGD Indication: dysphagia Anesthesia: MAC FLEXIBLE TRANSORAL UPPER GASTROINTESTINAL ENDOSCOPY UPPER ENDOSCOPY Consent: Indications for the procedure and potential complications of bleeding, perforation, reaction to medications and missed diagnosis were discussed with the patient and informed consent was obtained. Instrument: Olympus GIF H 190 J mid size upper endoscope Monitoring: Vital signs and clinical assessment, continuous EKG monitoring, Pulse oximetry, Carbon Dioxide monitoring and blood pressure monitoring were done throughout the procedure. Procedure: The patient was placed in the left lateral decubitis position and pre-procedure medications were administered and a bite block was placed. The endoscope was inserted into the mouth and advanced under direct vision to the third part of duodenum. A careful inspection was made as the upper endoscope was withdrawn including a retroflexed examination of the proximal stomach; Findings and interventions are described below. Findings: Larynx:normal Esophagus: GE junction at 38 cm, diaphragm hiatus at 38 cm, normal mucosa, bx taken from GEJ, distal and proximal esophagus, balloon dilation done to 20 mm at UES and LES--no tears seen. There appeared to be reduced esophageal motility, Stomach: patchy erythema . Biopsies were obtained. Grade 2 flap valve on retroflexed examination of the cardia. Duodenum: Normal bulb and descending duodenum, bx taken Intervention: Biopsies as noted above, Impression/Findings: mild gastritis possible esophageal dysmotility, PLAN: trial of high dose PPI for 3 months, if sx persist then HRM and pH studies GERD precautions
[2024-06-02 13:16] VITALS: BP 85/39; PULSE 86; RESP 16; TEMP 36.3; O2SAT 98
[2024-06-02 13:20] VITALS: BP 87/46; PULSE 74; RESP 16; O2SAT 97
[2024-06-02 13:30] VITALS: BP 87/43; PULSE 92; RESP 16; O2SAT 98
[2024-06-02 13:44] VITALS: BP 103/46; PULSE 79; RESP 16; O2SAT 99
[2024-06-02 13:52] VITALS: BP 103/52; PULSE 64; RESP 16; O2SAT 99
== END 2024-06-02 14:40 | disposition home or self-care (01) ==
PROVIDERS: Nurse Practitioner; PCP Internal Medicine; Visit Provider Internal Medicine Gastroenterology
PROC: 0DJ08ZZ Inspection of Upper Intestinal Tract, Via Natural or Artificial Opening Endoscopic (ICD-10-PCS; CPT 43235; principal; 2024-06-02 13:20)
DX: R13.10 Dysphagia, unspecified (principal); K21.9 Gastro-esophageal reflux disease without esophagitis; R10.13 Epigastric pain; K31.89 Other diseases of stomach and duodenum; K29.60 Other gastritis without bleeding; K44.9 Diaphragmatic hernia without obstruction or gangrene; J45.909 Unspecified asthma, uncomplicated; J39.2 Other diseases of pharynx; Z79.899 Other long term (current) drug therapy; Z88.2 Allergy status to sulfonamides
CPT/HCPCS: 43249; 43239; 81025; 88305; 88313; 88342; C1726; J1100; J1596; J2003; J2704

== ENCOUNTER → 2024-06-02 10:34 | Outpatient (BNV) | payer OTHER, SELFPAY | PROVIDERS: PCP Internal Medicine; Visit Provider Internal Medicine Gastroenterology | DX: R13.10 Dysphagia, unspecified (principal); K29.70 Gastritis, unspecified, without bleeding | CPT/HCPCS: 43239; 43249 ==

== ENCOUNTER 2024-06-16 12:04 | Outpatient (AMB) | payer OTHER, SELFPAY ==
[2024-06-16 12:07] VITALS: BP 112/56; PULSE 74; O2SAT 98; BMI 23.2
--- NOTE | 2024-06-16 12:07 | A.OFFVIS_ITS ---
Vital Signs 06/16/24 12:07 Height 5 ft 10 in Weight 161 lb 6.054 oz BMI 23.2 BP 112/56 L Blood Pressure Location Rt brachial Position Sitting Pulse 74 Pulse Source Pulse Oximeter Pulse Oximetry (%) 98 Oxygen Delivery Method Room Air Intake Visit Reasons: s/p egd Intake Note: Relevant Flags or Indicators ? Requires Integration Solution Architect? N Ondine presents in office today for a scheduled s/p EGD fuv. Relevant GI Sx as reported per pt? Reflux ? Dysphagia / Painful Swallowing (hoarseness as well) ? Abdominal Pain - epigastric pain. * Pt reports that they had attempted use of the omeprazole again as well as the famotidine but had complications with both. No longer taking famotidine, still taking omeprazole. ? Hx of any recent surgeries? Recent EGD w/ Dr. Lao. Integration Solution Architect Required: No Allergies Sulfa (Sulfonamide Antibiotics) Allergy (Unknown, Verified 06/16/24 12:09) nausea HPI HPI s/p egd: Details: LAST VISIT Throat irritation Accidental ingestion of substance Acid reflux Postprandial epigastric pain Plan Will send patient for H pylori testing. Will stop omeprazole and will put her on Pepcid. Patient will stop Pepcid 24 hours before her scheduled breath test. 1 hour NPO before breath test. Will treat empirically if positive. Patient will be sent for upper endoscopy to rule out esophagitis, gastritis, duodenitis, gastric or peptic ulcers, Garsia's. Check for celiac and pancreatitis. I will see patient after endoscopy, sooner on as needed basis. She is agreeable to this plan and verbalizes understanding of instructions. She was given the opportunity to ask questions and all questions answered. ? Thank you for allowing me to participate in her care Orders Orders Transglutaminase IgA Today R10.9 Transglutaminase Ab IgG Today R10.9 Lipase Today R10.9 H Pylori Breath Test Today K21.9 Medications New famotidine (Pepcid) 20 mg PO BEDTIME 30 tabs 0RF K21.9 UPPER ENDOSCOPY indings: Larynx:normal Esophagus: GE junction at 38 cm, diaphragm hiatus at 38 cm, normal mucosa, bx taken from GEJ, distal and proximal esophagus, balloon dilation done to 20 mm at UES and LES--no tears seen. There appeared to be reduced esophageal motility, Stomach: patchy erythema . Biopsies were obtained. Grade 2 flap valve on retroflexed examination of the cardia. Duodenum: Normal bulb and descending duodenum, bx taken Intervention: Biopsies as noted above, Impression/Findings: mild gastritis possible esophageal dysmotility, PLAN: trial of high dose PPI for 3 months, if sx persist then HRM and pH studies GERD precautions PATHOLOGY RESULTS Diagnosis A. Duodenum, biopsy: Duodenal mucosa with preserved villi and focal Loni's gland hyperplasia, otherwise no specific change. B. Stomach, biopsy: Gastric body mucosa with focal minimal chronic inactive inflammation; negative for intestinal metaplasia and dysplasia. C. Gastroesophageal junction, biopsy: Squamocolumnar mucosa with moderate chronic inflammation; no intestinal metaplasia seen on initial levels; negative for dysplasia. D. Esophagus, distal, biopsy: Squamous mucosa with no specific change, and fragment of gastric body mucosa with drying artifact and no intestinal metaplasia (consistent with contaminant). E. Esophagus, proximal, biopsy: Squamous mucosa with no specific change; no columnar mucosa present. Comment: (B): Immunostain for H. pylori pending; addendum to follow. (C): Additional level with AB/PAS stain pending; addendum to follow TODAY'S VISIT Patient is here today for follow-up and to discuss upper endoscopy results. Patient was given PPI and H2 devang, however she has not taking it until after endoscopy. Patient states that she started taking it after she had the procedure. Dr. Lao encouraged patient to take it for few months in order for her symptoms to get better. As mentioned above moderate chronic inflammation seen on stomach biopsy negative for intestinal metaplasia or dysplasia. Negative H pylori or esophagitis. No Barretts. Patient states that she is feeling better now that she started taking omeprazole. Patient is also trying to avoid dietary triggers. Trying to follow low FODMAP diet as she also was having symptoms of abdominal bloating postprandially. Patient denies any issues after endoscopy. Denies dyspepsia, dysphagia or odynophagia. Patient denies any other GI concerning symptoms. PFSH Surgical History (Updated 06/16/24 @ 12:14 by ISMAEL Saravia) H/O endoscopy Family History Brother Substance use disorder Mental health disorder Maternal Aunt Substance use disorder Mental health disorder Stomach cancer Mother Substance use disorder Mental health disorder Father Substance use disorder Maternal Grandmother History of intestinal surgery Social History Housing: Apartment Alcohol intake: current Alcohol intake frequency: holidays/special occasions only Patient Tobacco Use Status: Never used Tobacco e-Cigarette/Vaping Use: Never Used Current occupational status: employed Cognitive needs: No Hearing needs: No Vision needs: No Review of Systems Const Denies weight gain and Denies weight loss ENT Reports no additional complaints, Denies dysphagia and Denies odynophagia Card Reports no additional complaints Resp Reports no additional complaints GI Denies abdominal pain, Denies belching, Denies melena, Denies bloating, Denies change in bowel habits, Denies dysphagia, Denies excessive flatus, Denies dysp epsia, Reports heartburn (Occasional), Denies diarrhea, Denies loose stools, Denies nausea, Denies odynophagia and Denies vomiting Musc Reports no additional complaints Neuro Reports no additional complaints Psych Reports no additional complaints Endo Reports no additional complaints Physical Exam Vital Signs: Last Vital Signs Pulse 74 06/16/24 12:07 BP 112/56 L 06/16/24 12:07 Pulse Ox 98 06/16/24 12:07 Oxygen Delivery Method Room Air 06/16/24 12:07 BMI result Body Mass Index 23.2 Const General: healthy appearing, no acute distress and well developed Nutritional Appearance: well nourished Orientation/consciousness: patient oriented x3 Resp Effort & Inspection: normal respiratory effort, able to speak in complete s entences, no tracheal deviation and symmetric chest movement Auscultation: clear to auscultation bilaterally Cardio Rate: regular rate GI Inspection: Yes normal to inspection and No distended Palpation (GI): Soft to palpation, not firm, nontender and No hepatosplenomegaly present Auscultation: normal bowel sounds General: Yes no CVA tenderness Back/Spine/Pelvis Back: no CVA tenderness Skin General skin exam: elasticity normal, turgor normal and dry skin Neuro General: patient oriented x3 Psych Appearance: grossly normal Mental Status: mental status grossly normal Assessment & Plan Assessment & Plan (1) Acid reflux: Code(s): K21.9 - Gastro-esophageal reflux disease without esophagitis Category: Medical Qualifiers: Esophagitis presence: without esophagitis Qualified Code(s): K21.9 - Gastro-esophageal reflux disease without esophagitis (2) Postprandial epigastric pain: Code(s): R10.13 - Epigastric pain (3) Postprandial abdominal bloating: Code(s): R14.0 - Abdominal distension (gaseous) Plan Continue omeprazole b.i.d. for the next 3 months. May take MiraLax on as needed basis. Avoid dietary triggers and late night snacking. Staying upright for minimum 3 hours after meals discussed with patient. Continue low FODMAP diet. Patient will follow-up in 3 months, sooner on as needed basis. She is agreeable to this plan and verbalizes understanding of instructions. She was given the opportunity to ask questions and all questions answered. Thank you for allowing me to participate in her care Coding Level of Care Code Est Pt Level 4 (04449) Complex EM visit Add On G2211 Diagnoses Gastroesophageal reflux disease without esophagitis K21.9 Esophagitis presence: without esophagitis Postprandial epigastric pain R10.13 Postprandial abdominal bloating R14.0 Time Spent (min) 35 Comment 25 minutes spent with patient and additional 10 minutes spent reviewing her records
== END 2024-06-16 13:02 | disposition home or self-care (01) ==
PROVIDERS: PCP Internal Medicine; Visit Provider Nurse Practitioner Family
DX: K21.9 Gastro-esophageal reflux disease without esophagitis (principal); R10.13 Epigastric pain; R14.0 Abdominal distension (gaseous)
CPT/HCPCS: 99214

== ENCOUNTER → 2024-06-16 12:04 | Outpatient (BNVA) | payer OTHER, SELFPAY | PROVIDERS: PCP Internal Medicine; Visit Provider Nurse Practitioner Family ==

== ENCOUNTER 2025-04-29 09:47 | Outpatient (AMB) | payer OTHER, SELFPAY ==
[2025-04-29 09:50] VITALS: BP 108/70; PULSE 82; O2SAT 98; BMI 24.1
--- NOTE | 2025-04-29 09:50 | MHC.PC.OV ---
Vital Signs 04/29/25 09:50 Height 5 ft 10 in Weight 168 lb BMI 24.1 BP 108/70 Blood Pressure Location Lt brachial Position Sitting Pulse 82 Pulse Source Pulse Oximeter Pulse Oximetry (%) 98 Intake Visit Reasons: Annual PE Dental Assistant Medical Assistant Required: No Accompanied by: Self / Same As Patient Allergies Sulfa (Sulfonamide Antibiotics) Allergy (Unknown, Verified 04/29/25 09:53) nausea famotidine Adverse Reaction (Mild, Verified 04/29/25 09:53) Stomach Upset Medication List - Last Reconciled 04/29/25 by Irving Han MD albuterol sulfate 90 mcg/actuation 1 inh inhalation QID PRN 30 days lorazepam 0.5 mg PO DAILY PRN 5 days omeprazole 40 mg PO BID polyethylene glycol 3350 (Miralax) 17 grams PO DAILY Saccharomyces boulardii (Daily Probiotic (S. boulardii)) 250 mg PO BID Tobacco use date assessed: 04/29/25 Dental Screening Dental Screen Date: 04/29/25 Did you have a dental visit in the last 12 months?: Yes Did you have a dental problem in the last 6 months where you did not have access to dental care?: No Was dental information given to patient?: Patient has dentist HPI Annual PE HPI Details History of Present Illness The patient is a 39-year-old female presenting with medication refill and dermatology referral. 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 - She takes lorazepam as needed for flight anxiety. - Lorazepam use has been beneficial, allowing her to manage her anxiety during flights. Gastroesophageal reflux disease (GERD): - The patient reports moderate gastric discomfort, suggestive of reflux. - Symptoms include sensation of reflux when eating large or fried meals. - Avoids laying down post meals due to reflux reaching the throat. - Previous endoscopy indicated moderate inflammation. - Uses omeprazole and occasionally Gaviscon to manage symptoms. Chronic constipation: - The patient requires aid with laxatives for regular bowel movements. - Reports constipation persists, necessitating regular use of Colace and MiraLAX. Intermittent asthma: - Asthma is typically triggered by smoke or physical activity. - The condition has improved with omeprazole, possibly linking it with GERD. Suspicious skin lesions/moles: - Multiple moles have been itching and bleeding - A notable mole on the face has increased in size, causing concern. Medical History: - Flight-induced phobia managed with lorazepam - Gastroesophageal reflux disease managed with omeprazole - Chronic constipation managed with Colace and MiraLAX - Intermittent asthma, exacerbated by smoke exposure and sometimes exercise Social History: - Experiences significant work-related time constraints due to working two full-time jobs. - Social dynamics with family involve a culture of making fun of each other; stepfather has commented on her moles and acne. Family History: - No family history of breast cancer - Family history of non-specific cancers noted Health Maintenance - Acknowledged need for overdue SERVICE AND REPAIR SUPERVISOR visit has not been addressed . - Regular annual blood tests without reported anomalies; follow up testing due. [place], [place] - dermatology for mole evaluation. - The patient has a prior connection with [facility] for SERVICE AND REPAIR SUPERVISOR care. Medications - Lorazepam for flight phobia - Omeprazole for gastroesophageal reflux disease - Colace and MiraLAX for chronic constipation Patient Instructions - Continue with lorazepam as needed for flights. - Maintain current regimen of omeprazole and Gaviscon for GERD management. - Continue use of Colace and MiraLAX to manage constipation. - Avoid large and fried meals to prevent GERD symptoms. - Do not lay down immediately after eating to help manage reflux. - Schedule and attend dermatology appointment for mole evaluation. - Consider SERVICE AND REPAIR SUPERVISOR visit through [facility] if not already done. Review of Systems - General: No fever no chills - Neurological: No headaches no dizziness - Ear nose throat: No sore throat no hearing difficulty no ear pain - Cardiovascular: No syncope, no chest pain, no palpitations - Gastrointestinal: No nausea vomiting or diarrhea - Endocrine: No polyuria polydipsia no heat intolerance - Genitourinary: No dysuria - Skin: No new complaints Physical Exam General: Cooperative, healthy appearing, comfortable, no acute distress Orientation: Patient oriented x3 Head: Normal to inspection Ears: Within normal limit visually Nose: Normal external nose present Face and sinus: Normal facial exam Eyes: Appearance normal, extraocular movement intact pupils reactive Neck: Normal visual inspection and supple Respiratory: Normal respiratory effort and able to speak in complete sentences. Clear to auscultation, no stridor Cardiovascular: S1 and S2 RRR GI: Normal to inspection. Soft to palpation and nontender Skin: Turgor normal, no acute findings. Neuro: Patient oriented x3, motor sensory intact, balance intact, tandem pass Extremities: Normal to inspection [facility] Surgical History H/O endoscopy Family History Brother Substance use disorder Mental health disorder Maternal Aunt Substance use disorder Mental health disorder Stomach cancer Mother Substance use disorder Mental health disorder Father Substance use disorder Maternal Grandmother History of intestinal surgery Social History Housing: Apartment Alcohol intake: current Alcohol intake frequency: holidays/special occasions only Patient Tobacco Use Status: Never used Tobacco e-Cigarette/Vaping Use: Never Used Current occupational status: employed Cognitive needs: No Hearing needs: No Vision needs: No Questionnaire PHQ-9 Over the last 2 weeks, how often have you been bothered by any of the following problems? 1. Little interest or pleasure in doing things: not at all 2. Feeling down, depressed, or hopeless: not at all 3. Trouble falling or staying asleep, or sleeping too much: not at all 4. Feeling tired or having little energy: not at all 5. Poor appetite or overeating: not at all 6. Feeling bad about yourself - or that you are a failure or have let yourself or your family down: not at all 7. Trouble concentrating on things, such as reading the newspaper or watching television: not at all 8. Moving or speaking so slowly that other people could have noticed. Or the opposite - being so fidgety or restless that you have been moving around a lot more than usual: not at all 9. Thoughts that you would be better off or of hurting yourself in some way: not at all Total score: 0 Depression Screening Interpretation: Negative Depression Screening Done: Yes 84721 - PHQ-9 Billing: Yes Source: Developed by Drs. Eliot Alford, Zunilda Jennings, Vaughn Call and colleagues, with an educational sourav from [employer]. Thrive Questionnaire Date Thrive assessed: 04/28/25 I am a: Patient What is your living situation today?: I have a steady place to live Within the past 12 months, did the food you bought not last and you didn't have the money to get more?: Never true Within the past 12 months, did you worry whether your food would run out before you got money to buy more?: Never true Do you have trouble paying for medicines?: No Do you have trouble getting transportation to medical appointments?: No Do you have trouble paying your heating and electricity bill?: No Do you have trouble taking care of your child, family member or friend?: No Do you have trouble with day-to-day activities such as bathing, preparing meals, shopping, managing finances, etc.?: No Are you currently unemployed and looking for a job?: No Are you interested in more education?: No Please select the resources that you would like help with: None Currently or been in a relationship where the following occur: No concerns reported THRIVE Score: 0 AUDIT C Alcohol Use Questionnaire (AUDIT-C) 1. How often do you have a drink containing alcohol?: Never 3. How often do you have six or more drinks on one occasion?: Never Total Score: 0 Score Reviewed/Action Taken: Yes ALEXANDER-7 AMB Questionnaire ALEXANDER-7 Date ALEXANDER - 7 assessed: 04/29/25 Feeling nervous, anxious, or on edge: 0 = Not at all Not being able to stop or control worryin = Not at all Worrying too much about different things: 0 = Not at all Trouble relaxin = Not at all Being so restless that it is hard to sit still: 0 = Not at all Becoming easily annoyed or irritable: 0 = Not at all Feeling afraid as if something awful might happen: 0 = Not at all Total ALEXANDER-7 score (0-4 normal; 5-9 mild; 10-14 moderate; 15-21 severe): 0 Source: Developed by Drs. Eliot Alford, Zunilda Jennings, Vaughn Call and colleagues, with an educational sourav from [employer]. ALEXANDER-7 Assessment Billing ALEXANDER-7 Assessment Tool: ALEXANDER-7 Assessment 89942 Physical exam (Primary Care) Vital Signs: Last Vital Signs Pulse 82 04/29/25 09:50 BP 108/70 04/29/25 09:50 Pulse Ox 98 04/29/25 09:50 BMI result Body Mass Index 24.1 Tobacco/Smoking Status: Tobacco use Status Tobacco use date assessed 09/12/25 09/12/25 09:51 Patient Tobacco Use Status Never used Tobacco 04/29/25 09:51 e-Cigarette/Vaping Use Never Used 04/29/25 09:51 PHQ-9: PHQ-9 Score PHQ-9: Total score 0 04/29/25 10:23 Depression Screening Interpretation: Negative Thrive Assessment: Date of Thrive Assessment Date Thrive assessed 04/28/25 04/29/25 09:51 Currently or been in a relationship where the following occur: No concerns reported Coding Level of Care Code Est Pt Level 3 (71327) Est Pt Prev Care 18-39y(09788) Diagnoses Encounter for general adult medical examination with abnormal findings Z00.01 Skin lesion of face L98.9 Fear of flying F40.243 Gastroesophageal reflux disease without esophagitis K21.9 Esophagitis presence: without esophagitis Additional Codes ALEXANDER-7 Assessment Billing - ALEXANDER-7 Assessment Tool: ALEXANDER-7 Assessment 44080 ([id number]) PHQ-9 - 32738 - PHQ-9 Billing: Yes ([id number]) Assessment & Plan Assessment & Plan (1) Encounter for general adult medical examination with abnormal findings: Code(s): Z00.01 - Encounter for general adult medical examination with abnormal findings Category: Medical (2) Skin lesion of face: Code(s): L98.9 - Disorder of the skin and subcutaneous tissue, unspecified Category: Medical (3) 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 - Fear of flying Category: Medical (4) Acid reflux: Code(s): K21.9 - Gastro-esophageal reflux disease without esophagitis Category: Medical Qualifiers: Esophagitis presence: without esophagitis Qualified Code(s): K21.9 - Gastro-esophageal reflux disease without esophagitis Plan History of Present Illness The patient is a 39-year-old female presenting with medication refill and dermatology referral. 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 - She takes lorazepam as needed for flight anxiety. - Lorazepam use has been beneficial, allowing her to manage her anxiety during flights. Gastroesophageal reflux disease (GERD): - The patient reports moderate gastric discomfort, suggestive of reflux. - Symptoms include sensation of reflux when eating large or fried meals. - Avoids laying down post meals due to reflux reaching the throat. - Previous endoscopy indicated moderate inflammation. - Uses omeprazole and occasionally Gaviscon to manage symptoms. Chronic constipation: - The patient requires aid with laxatives for regular bowel movements. - Reports constipation persists, necessitating regular use of Colace and MiraLAX. Intermittent asthma: - Asthma is typically triggered by smoke or physical activity. - The condition has improved with omeprazole, possibly linking it with GERD. Suspicious skin lesions/moles: - Multiple moles have been itching and bleeding. - A notable mole on the face has increased in size, causing concern. Medical History: - Flight-induced phobia managed with lorazepam - Gastroesophageal reflux disease managed with omeprazole - Chronic constipation managed with Colace and MiraLAX - Intermittent asthma, exacerbated by smoke exposure and sometimes exercise Social History: - Experiences significant work-related time constraints due to working two full-time jobs. - Social dynamics with family involve a culture of making fun of each other; stepfather has commented on her moles and acne. Family History: - No family history of breast cancer - Family history of non-specific cancers noted Health Maintenance - Acknowledged need for overdue SERVICE AND REPAIR SUPERVISOR visit has not been addressed . - Regular annual blood tests without reported anomalies; follow up testing due. [facility] - dermatology for mole evaluation. - The patient has a prior connection with [facility] for SERVICE AND REPAIR SUPERVISOR care. Medications - Lorazepam for flight phobia - Omeprazole for gastroesophageal reflux disease - Colace and MiraLAX for chronic constipation Patient Instructions - Continue with lorazepam as needed for flights. - Maintain current regimen of omeprazole and Gaviscon for GERD management. - Continue use of Colace and MiraLAX to manage constipation. - Avoid large and fried meals to prevent GERD symptoms. - Do not lay down immediately after eating to help manage reflux. - Schedule and attend dermatology appointment for mole evaluation. - Consider SERVICE AND REPAIR SUPERVISOR visit through [facility] if not already done. Orders: Orders Complete Blood Count Auto Diff 04/29/25 F40.243 - Fear of flying, Z00.01 - Encounter for general adult medical examination with abnormal findings Comprehensive [place]. Panel Fast 04/29/25 F40.243 - Fear of flying, Z00.01 - Encounter for general adult medical examination with abnormal findings Lipid Panel 04/29/25 F40.243 - Fear of flying, Z00.01 - Encounter for general adult medical examination with abnormal findings Vitamin D 25-OH (D2 and D3) 04/29/25 F40.243 - Fear of flying, Z00.01 - Encounter for general adult medical examination with abnormal findings Referrals SERVICE AND REPAIR SUPERVISOR Referral Z01.419 - Encounter for gynecological examination (general) (routine) without abnormal findings Dermatology Referral L98.9 - Disorder of the skin and subcutaneous tissue, unspecified Medications: Changed From lorazepam 0.5 mg PO DAILY 5 days PRN 5 tabs 0RF Flight phobia To lorazepam 0.5 mg PO DAILY PRN 15 tabs 0RF Flight phobia 15 days
== END 2025-04-29 16:58 | disposition home or self-care (01) ==
LOC: HO.HMCC 09:47
PROVIDERS: PCP Internal Medicine; Visit Provider Internal Medicine
DX: Z00.01 Encounter for general adult medical examination with abnormal findings (principal); L98.9 Disorder of the skin and subcutaneous tissue, unspecified; F40.243 Fear of flying; K21.9 Gastro-esophageal reflux disease without esophagitis

== ENCOUNTER → 2025-04-29 09:47 | Outpatient (BNVA) | payer OTHER, SELFPAY | PROVIDERS: PCP Internal Medicine; Visit Provider Internal Medicine | DX: Z00.01 Encounter for general adult medical examination with abnormal findings (principal); K21.9 Gastro-esophageal reflux disease without esophagitis; L98.9 Disorder of the skin and subcutaneous tissue, unspecified; F40.243 Fear of flying | CPT/HCPCS: 96127 ==